=== PATIENT | male | born 1970 | race Caucasian/White ===

== ENCOUNTER 2022-11-30 06:43 | Outpatient (OUT) | payer OTHER, SELFPAY ==
[2022-11-30 07:01] LABS: Basophils Absolute Auto 0.1 10^3/uL (0.0-0.1); Basophils Percent Auto 0.7 % (0.2-2.0); Eosinophils Absolute Auto 0.1 10^3/uL (0.0-0.7); Eosinophils Percent Auto 1.1 % (0.9-7.0); Hematocrit 41.1 % (42.0-54.0); Hemoglobin 13.8 g/dL (14.0-18.0); Immature Granulocytes Abs Auto 0.03 10^3/uL (0.00-0.03); Immature Granulocytes Pct Auto 0.4 % (0.0-0.5); Lymphocytes Absolute Auto 1.8 10^3/uL (1.2-3.8); Lymphocytes Percent Auto 24.5 % (20.5-60.0); Mean Corpuscular HGB Conc 33.6 g/dL (29.9-35.2); Mean Corpuscular Hemoglobin 29.5 pg (25.9-34.0); Mean Corpuscular Volume 87.8 fL (80.0-94.0); Mean Platelet Volume 9.4 fL (9.5-13.5); Monocytes Absolute Auto 0.7 10^3/uL (0.3-0.8); Monocytes Percent Auto 8.7 % (1.7-12.0); Neutrophils Absolute Auto 4.9 10^3/uL (1.4-6.5); Neutrophils Percent Auto 64.6 % (43.0-75.0); Platelet Count 210 10^3/uL (150-450); Red Blood Count 4.68 10^6/uL (4.70-6.10); Red Cell Distribution Width 12.2 % (11.0-15.0); White Blood Count 7.5 10^3/uL (4.0-11.0)
[2022-11-30 07:44] LABS: Estimated Average Glucose 108 mg/dL; Glycohemoglobin A1C 5.4 % (4.5-6.2)
[2022-11-30 08:13] LABS: Alanine Aminotransferase 40 U/L (16-63); Albumin Globulin Ratio 1.1; Albumin Level 3.6 g/dL (3.4-5.0); Alkaline Phosphatase 78 U/L (46-116); Anion Gap 7.7; Aspartate Amino Transferase 24 U/L (15-37); BUN Creatinine Ratio 10.5; Bilirubin Direct 0.1 mg/dL (0.0-0.2); Bilirubin Total 0.5 mg/dL (0.2-1.0); Calcium 8.4 mg/dL (8.5-10.1); Carbon Dioxide 30.2 mmol/L (21.0-32.0); Chloride 106 mmol/L (98-107); Chol HDL Ratio 2.6; Cholesterol 142 mg/dL (<=200); Estimated GFR (African America >60 (>=60); Estimated GFR (Non-African Ame >60 (>=60); Globulin 3.2 g/dL; Glucose 83 mg/dL (74-106); HDL Cholesterol 55 mg/dL (40-60); Potassium 3.9 mmol/L (3.5-5.1); Sodium 140 mmol/L (136-145); Thyroid Stimulating Hormone 2.268 uIU/mL (0.358-3.740); Total Protein 6.8 g/dL (6.4-8.2); Triglycerides 70 mg/dL (<=150)
[2022-11-30 08:15] LABS: Prostate Specific Antigen Scrn 1.09 ng/mL (<=4.00)
== END 2022-11-30 06:44 | disposition home or self-care (01) ==
LOC: LAB 06:47
PROVIDERS: PCP Family Medicine; Visit Provider Family Medicine
DX: Z00.00 Encounter for general adult medical examination without abnormal findings (principal); Z12.5 Encounter for screening for malignant neoplasm of prostate
CPT/HCPCS: 36415; 80048; 80061; 80076; 83036; 84443; 85025; G0103

== ENCOUNTER 2023-02-19 08:25 | Outpatient (OUT) | payer OTHER, SELFPAY | END 2023-02-19 08:26 | disposition home or self-care (01) | LOC: PST 08:25 | PROVIDERS: PCP Family Medicine; Visit Provider Surgery | DX: Z01.818 Encounter for other preprocedural examination (principal); Z12.11 Encounter for screening for malignant neoplasm of colon ==

== ENCOUNTER 2023-04-30 11:10 | Outpatient (OUT) | payer OTHER, SELFPAY ==
--- OUTSIDE RECORDS SUMMARY | 2023-04-30 11:26 | XMS_ITS | CCD ---
Author Name Unknown Address [address] [place] [address] Organization [facility] Care Team Providers Care Front Office Secretary Name Role Phone HEATHER FERNANDEZ Primary Care Unavailable RAVI RIVERA V Consulting Unavailable NADERER, HEATHER Elizabeth Admitting Unavailable NADERER, HEATHER Elizabeth Attending Unavailable NADERER, HEATHER Elizabeth Consulting Unavailable CARLENETRACE Consulting Unavailable NADERER, HEATHER Elizabeth Admitting Unavailable NADERER, HEATHER Elizabeth Attending Unavailable NADERER, HEATHER Elizabeth Primary Care Unavailable RAVI RIVERA V Consulting Unavailable NADERER, HEATHER Elizabeth Consulting Unavailable YASHRuth Attending Unavailable YASH, LACY Garcia Admitting Unavailable NILLEloy Attending Unavailable Allergies Allergy Classification Reported Allergen(s) Allergy Type Date of Onset Reaction(s) Facility (1 source) nabumetone; Translations: [nabumetone] Drug Allergy [facility] Repository (1 source) No Known Medication Allergies; Translations: [No Known Medication Allergies] Propensity to adverse reactions (disorder) [facility] Repository Problems Active Problems Problem Classification Problem Date Documented Da te Episodic/Chronic Other lower respiratory disease (5 sources) Shortness of breath; Translations: [SHORTNESS OF BREATH] Onset: 12-03-2018 Episodic Other screening for suspected conditions (not mental disorders or infectious disease) (1 source) Other specified abnormal findings of blood chemistry; Translations: [OTH SPEC ABNORMAL FINDINGS BLD CHEM] Onset: 04-17-2019 Episodic Past or Other Problems Problem Classification Problem Date Documented Da te Episodic/Chronic Fever of unknown origin (1 source) Fever, unspecified; Translations: [FEVER UNSPECIFIED] Onset: 12-03-2018 Episodic Other liver diseases (1 source) Abnormal levels of other serum enzymes; Translations: [ABNORMAL LEVELS OTHER SERUM ENZYMES] Onset: 12-03-2018 Episodic Pneumonia (except that caused by tuberculosis or sexually transmitted disease) (4 sources) Pneumonia, unspecified organism; Translations: [PNEUMONIA UNSPECIFIED ORGANISM] Onset: 11-25-2018 Episodic Results Test Name Value Interpretation Reference Range Facil ity Ambulatory Visit Summaryon 1 Ambulatory Visit Summary YECENIA HECK :1970 Visit Date:01/01/2023 Ambulatory Visit Instructions Your Diagnosis Screening for malignant neoplasm of colon Your Care Team Attending Physician - JEANA SEBASTIAN, Elyo Kelly Primary Care Physician - REBECCA SEBASTIAN, HEATHER Procedures Performed Vasectomy. Discharge Vitals Heart Rate (Peripheral) 66 Respiratory Rate 16 Blood Pressure 123/82 Height 185.4 cm Height 73 in Weight 96 kg Weight 211.2 lb BMI 27.93 Allergies nabumetone Problems Ongoing - Any problem that you are currently receiving treatment for. BMI 27.0-27.9,adult Overweight Screening for colorectal cancer Screening for malignant neoplasm of colon [facility] Consent for Procedure/Surger yon 01-01-2023 Consent for Procedure/Surgery [id number] 6#1.00TIFF [facility] Physician Orderon 01-01-2023 Physician Order [id number] #1.00TIFF [facility] Physician Referralon 023 Physician Referral [id number] #1.00CD:127 [facility] In office Testingon 02-09-20 22 In office Testing [id number] 6#1.00CD:127 [facility] Consenton 02-05-2022 Consent [id number] 6#1.00CD:127 [facility] In office Testingon 02-06-20 22 In office Testing [id number] 5#1.00CD:127 [facility] Registrationon 02-05-2022 Registration [id number] 9#1.00CD:127 Normal [facility] CARDIAC STRESS TESTon 2019 CARDIAC STRESS TEST CARDIAC STRESS TEST Requesting Physician: Dr. Fernandez Procedure Date: 04-16-19 IGENERAL INFORMATION: A. REASON FOR STRESS TEST: To evaluate a patient with shortness of breath and elevated troponin. B. CARDIAC HISTORY AND RISK FACTORS: This is a 49 year-old patient with no personal or family history of coronary disease. In addition there are no primary risk factors stated. He is a nonsmoker. IIRESTING 12-LEAD ELECTROCARDIOGRAM: Reveals sinus rhythm with a ventricular rate of 74 beats per minute. The MO interval is 0.16, the QRS is 0.08 with a QT of 0.36. The axis is normal. There are no pathologic Q-waves, no chamber enlargement and nonspecific ST-T wave changes. III STRESS TEST: A. PROTOCOL: Emiliano protocol was followed. B.EXERCISE CAPACITY: The patient demonstrated above average exercise capacity, he exercised for 9 1/2 minutes achieving a heart rate of 174 bpm. This is equivalent to 101% maximum predicted heart rate. He exercised into stage 3 of this protocol, equivalent to 3.4 mph, 14% grade, 10.1 MET units. C.BLOOD PRESSURE RESPONSE: The patient demonstrated a normal blood pressure response to exercise, his resting was 118/80, increasing to a peak of 150/88, and gradually returning to baseline during the recovery phase. D.RHYTHM: The patient remained in sinus rhythm throughout the exercise test with ventricular couplet, a PVC, and a three-beat VT noted at peak exercise. E.ST-RESPONSE: At peak exercise there was minimal J-point depression, the ST segments were upsloping in configuration, easily returning to baseline prior to 0.08 seconds. F.PATIENT RESPONSE: The patient complained of dyspnea without chest pain. IVINTERPRETATION: This is a normal treadmill exercise test without objective evidence of myocardial ischemia. He demonstrates a normal heart rate and blood pressure response to exercise. He demonstrated above average exercise capacity. His Keating treadmill score was 9.5 placing him in a low risk category. Cardiolite was injected with images and interpretation pending. [facility] Signed and Approved by: DR ADRI PRICE 04/24/2019 08:19:00 Normal [facility] NM STRESS/REST MULTIon 04-16 NM STRESS/REST MULTI Patient: YECENIA HECK Exam Date: 04/16/2019 : 1970 Gender:M Ordering : DR HEATHER FERNANDEZ . Admission #: [id number] Family : Order #: [id number] CLICK HERE TO VIEW EXAM RADIOLOGY REPORT PROCEDURE: RADIONUCLIDE IMAGING STRESS/REST MULTI COMPARISON: None. INDICATIONS: Dyspnea on exertion R06.02, elevated troponin R79.89 TECHNIQUE: Exam Description: Stress/Rest one day protocol gated SPECT Rest Imagin.6 mCi Tc-99m Cardiolite IV on 05/17/2019 Stress Imaging 30.7 mCi Tc-99m Cardiolite IV on 05/17/2019 Exercise Protocol: Emiliano Heart Rate (bpm): Rest: 74 Max: 174 PMHR: 101 Blood Pressure: Rest: 118/80 Max: 150/88 Exercise Time: Minutes: 9 Seconds: 30 Stage Reached: Stage: 3 Mets 10.1 Symptoms: none Rest and peak stress ECG findings were normal and the exercise portion of the study was normal per attending physician Dr. Israel Price . For more details please see separate cardiac stress test report. FINDINGS: QUALITY OF STUDY: Excellent. PERFUSION DEFECT: None. LOCATION: N/A SIZE: N/A. SEVERITY: N/A. TYPE: N/A. WALL MOTION: Normal. LV SIZE: Normal. 89 mL. TID / TCD: None; 0.9 LVEF: Normal. Calculated EF 64%. SUMMARY: Myocardial perfusion imaging study is NORMAL. CONCLUSION: 1. Normal myocardial profusion scan 2. Normal exercise test Dictated by: Ravi Rivera M.D. on 04/16/2019 at 14:48 Approved by: Ravi Rivera M.D. on 04/16/2019 at 14:49 Normal [facility] CBC W MANUAL DIFFon 11-27-19 19 ATYPICAL LYMPH # Normal [facility] Comment on above: Performed By: #### C JAS #### [facility] [address] [place] [address] Adina Rutherford ATYPICAL LYMPH % Normal [facility] Comment on above: Performed By: #### C JAS #### [facility] [address], [place] [address] Adina Rutherford BAND # 0.3 103/ul Normal 0.0-0.3 [facility] Comment on above: Performed By: #### Holland MARK #### [facility] [address] [place], [place] [address] Adina Sangeeta BAND % 3 % Normal 0-5 [facility] Comment on above: Performed By: #### C JAS #### [facility] [address] [place] [address] Adina Sangeeta BASOM # 0.00 103/ul Normal 0.00-0.10 [facility] Comment on above: Performed By: #### C JAS #### [facility] [address] [place] [address] Adina Sangeeta BASOM % 0.0 % Critically low 0.2-2.0 [facility] Comment on above: Performed By: #### Holland MARK #### [facility] [address] [place] [address] Adina Sangeeta BLAST # Normal [facility] Comment on above: Performed By: #### Holland MARK #### [facility] [address] [place] [address] Adina Sangeeta BLAST % Normal [facility] Comment on above: Performed By: #### Holland MARK #### [facility] [address] [place] [address] Adina Sangeeta CORRECTED WBC Normal 4.0-11.0 [facility] Comment on above: Performed By: #### Holland MARK #### [facility] [address] [place] [address] Adina Sangeeta Eosinophils (Bld) [#/Vol] 0.00 103/ul Normal 0.00-0.70 [facility] Comment on above: Performed By: #### Holland MARK #### [facility] [address] [place] [address] Adina Sangeeta Eosinophils/100 WBC (Bld) 0.0 % Critically low 0.9-7.0 [facility] Comment on above: Performed By: #### Holland MARK #### [facility] [address] [place] [address] Adina Sangeeta Erythrocyte distribution width (RBC) [Ratio] 11.9 % Normal 11.0-15.0 [facility] Comment on above: Performed By: #### C JAS #### [facility] [address] [place] [address] Adina Rutherford Hematocrit (Bld) [Volume fraction] 39.3 % Critically low 42.0-54.0 [facility] Comment on above: Performed By: #### C JAS #### [facility] [address] [place] [address] Adina Rutherford Hemoglobin (Bld) [Mass/Vol] 13.0 g/dl Critically low 14.0-18.0 [facility] Comment on above: Performed By: #### C JAS #### [facility] [address] [place] [address] Adina Rutherford LYMPHM # 0.32 103/ul Critically low 1.20-3.80 [facility] Comment on above: Performed By: #### C JAS #### [facility] [address] [place] [address] Adina Rutherford LYMPHM% 3.0 % Critically low 20.5-60.0 [facility] Comment on above: Performed By: #### C JAS #### [facility] [address] [place], [place] [address] Adina Rutherford MCH (RBC) [Entitic mass] 29.1 pg Normal 25.9-34.0 [facility] Comment on above: Performed By: #### C JAS #### [facility] [address] [place] [address] Adina Rutherford MCHC (RBC) [Mass/Vol] 33.1 g/dl Normal 29.9-35.2 [facility] Comment on above: Performed By: #### C JAS #### [facility] [address] [place], [place] [address] Adina Rutherford MCV (RBC) [Entitic vol] 87.9 fL Normal 80.0-94.0 [facility] Comment on above: Performed By: #### C JAS #### [facility] [address] [address] Adina Sangeeta METAMYELOCYTE # Normal [facility] Comment on above: Performed By: #### C JAS #### [facility] [address] [place], [place] [address] Adina Sangeeta METAMYELOCYTE % Normal [facility] Comment on above: Performed By: #### C JAS #### [facility] [address] [place] [address] Adina Sangeeta MONOM# 0.10 103/ul Critically low 0.30-0.80 [facility] Comment on above: Performed By: #### C JAS #### [facility] [address] [place] [address] Adina Sangeeta MONOM% 1.0 % Critically low 1.7-12.0 [facility] Comment on above: Performed By: #### C JAS #### [facility] [address] [place] [address] Adina Sangeeta MYELOCYTE # Normal [facility] Comment on above: Performed By: #### Holladn MARK #### [facility] [address] [place] [address] Adina Sangeeta MYELOCYTE % Normal [facility] Comment on above: Performed By: #### C JAS #### [facility] [address] [place] [address] Adina Sangeeta NRBC Normal [facility] Comment on above: Performed By: #### Holland MARK #### [facility] [address] [place] [address] Adina Sangeeta Platelet mean volume (Bld) [Entitic vol] 10.7 fL Normal 9.5-13.5 [facility] Comment on above: Performed By: #### C JAS #### [facility] [address] [place] [address] Adina Sangeeta Platelets (Bld) [#/Vol] 230 103/ul Normal 150-450 [facility] Comment on above: Performed By: #### Holland MARK #### [facility] [address] [place] [address] Adina Sangeeta RBC (Bld) [#/Vol] 4.47 106/ul Critically low 4.70-6.10 Th [facility] Comment on above: Performed By: #### C JAS #### [facility] [address] [place], [place] [address] Adina Sangeeta SEG # 9.77 103/ul Critically high 1.40-6.50 [facility] Comment on above: Performed By: #### C JAS #### [facility] [address] [place], [place] [address] Adina Sangeeta Segmented neutrophils/100 WBC (Bld) 93.0 % Critically high 43.0-75.0 [facility] Comment on above: Performed By: #### C JAS #### [facility] [address] [place] [address] Adina Sangeeta WBC (Bld) [#/Vol] 10.5 103/ul Normal 4.0-11.0 [facility] Comment on above: Performed By: #### C JAS #### [facility] [address] [place], [place] [address] Adina Sangeeta PROF CHEM 8 (BAS METB)on Anion gap [Moles/Vol] 15.2 mmol/L Normal [facility] Comment on above: Performed By: #### B MP #### [facility] [address] [place], [place] [address] Adina Sangeeta Calcium [Mass/Vol] 8.6 mg/dL Normal 8.4-10.2 [facility] Comment on above: Performed By: #### B MP #### [facility] [address] [place], [place] [address] Adina Sangeeta Chloride [Moles/Vol] 105 mmol/L Normal 98-107 [facility] Comment on above: Performed By: #### B MP #### [facility] [address] [place], [place] [address] Adina Sangeeta CO2 [Moles/Vol] 26.0 mmol/L Normal 22.0-30.0 [facility] Comment on above: Performed By: #### B MP #### [facility] [address] [address] Adina Sangeeta Creatinine [Mass/Vol] 0.77 mg/dL Normal 0.66-1.25 [facility] Comment on above: Performed By: #### B MP #### [facility] [address] [address] Adina Sangeeta EGFR-AF CHINESE >60 Normal >=60 [facility] Comment on above: Performed By: #### B MP #### [facility] [address] [address] Adina Sangeeta EGFR-NON AF CHINESE >60 Normal >=60 [facility] Comment on above: Performed By: #### B MP #### [facility] [address] [place] [address] Adina Sangeeta Glucose [Mass/Vol] 141 mg/dL Critically high 74-106 [facility] Comment on above: Performed By: #### B MP #### [facility] [address] [place] [address] Adina Sangeeta Potassium [Moles/Vol] 4.2 mmol/L Normal 3.4-5.0 [facility] Comment on above: Performed By: #### B MP #### [facility] [address] [place] [address] Adina Sangeeta Sodium [Moles/Vol] 142 mmol/L Normal 137-145 [facility] Comment on above: Performed By: #### B MP #### [facility] [address] [place], [place] [address] Adina Sangeeta Urea nitrogen [Mass/Vol] 12.0 mg/dL Normal 9.0-20.0 [facility] Comment on above: Performed By: #### B MP #### [facility] [address] [place], [place] [address] Adina Sangeeta Urea nitrogen/Creatinine [Mass ratio] 15.6 mg/mg Normal [facility] Comment on above: Performed By: #### B MP #### [facility] [address] [address] Adina Sangeeta CARDIAC SRIDHAR 3-6on 9 CK [Catalytic activity/Vol] 232 U/L Critically high 55-170 [facility] Comment on above: Performed By: #### C MREP #### [facility] [address] [place], [place] [address] Adina Sangeeta CK.MB [Mass/Vol] 0.59 ng/mL Normal <=2.37 [facility] Comment on above: Performed By: #### C MREP #### [facility] [address] [place], [place] [address] Adina Sangeeta INR Coag (Bld) [Relative time] SEE BELOW Normal [facility] Comment on above: Result Comment: <0.0 34 ng/ml NEGATIVE 0.034-0.119 INDETERMINATE 0.120 AMI CUT OFF Performed By: #### C MREP #### [facility] [address] [place] [address] Adina Sangeeta TROP 0.063 ng/mL Critically high <=0.034 [facility] Comment on above: Performed By: #### C MREP #### [facility] [address] [place] [address] Adina Sangeeta CK [Catalytic activity/Vol] 238 U/L Critically high 55-170 [facility] Comment on above: Performed By: #### C MREP #### [facility] [address] [place] [address] Adina Sangeeta CK.MB [Mass/Vol] 0.57 ng/mL Normal <=2.37 [facility] Comment on above: Performed By: #### C MREP #### [facility] [address] [place] [address] Adina Sangeeta INR Coag (Bld) [Relative time] SEE BELOW Normal [facility] Comment on above: Result Comment: <0.0 34 ng/ml NEGATIVE 0.034-0.119 INDETERMINATE 0.120 AMI CUT OFF Performed By: #### C MREP #### [facility] [address] [place], [place] [address] Adina Sangeeta TROP 0.083 ng/mL Critically high <=0.034 [facility] Comment on above: Performed By: #### C MREP #### [facility] [address] [place], [place] [address] Adina Sangeeta CBC AUTO DIFFon 11-25-2018 Basophils (Bld) [#/Vol] 0.0 103/ul Normal 0.0-0.1 [facility] Comment on above: Performed By: #### C BC #### [facility] [address] [place], [place] [address] Adina Sangeeta Basophils/100 WBC (Bld) 0.2 % Normal 0.2-2.0 [facility] Comment on above: Performed By: #### C BC #### [facility] [address] [place], [place] [address] Adina Sangeeta Eosinophils (Bld) [#/Vol] 0.1 103/ul Normal 0.0-0.7 [facility] Comment on above: Performed By: #### C BC #### [facility] [address] [place], [place] [address] Adina Sangeeta Eosinophils/100 WBC (Bld) 0.7 % Critically low 0.9-7.0 [facility] Comment on above: Performed By: #### C BC #### [facility] [address] [place], [place] [address] Adina Sangeeta Erythrocyte distribution width (RBC) [Ratio] 11.9 % Normal 11.0-15.0 [facility] Comment on above: Performed By: #### C BC #### [facility] [address] [place], [place] [address] Adina Sangeeta Hematocrit (Bld) [Volume fraction] 35.9 % Critically low 42.0-54.0 [facility] Comment on above: Performed By: #### C BC #### [facility] [address] [place], [place] [address] Adina Sangeeta Hemoglobin (Bld) [Mass/Vol] 12.0 g/dL Critically low 14.0-18.0 [facility] Comment on above: Performed By: #### C BC #### [facility] [address] [place], [place] [address] Adina Sangeeta IG # 0.05 10e3/ul Critically high 0.00-0.03 [facility] Comment on above: Performed By: #### C BC #### [facility] [address], [place] [address] Adina Sangeeta IG % 0.6 % Critically high 0.0-0.5 [facility] Comment on above: Performed By: #### C BC #### [facility] [address], [place] [address] Adina Sangeeta Lymphocytes (Bld) [#/Vol] 0.8 103/ul Critically low 1.2-3.8 [facility] Comment on above: Performed By: #### C BC #### [facility] [address], [place] [address] Adina Sangeeta Lymphocytes/100 WBC (Bld) 9.9 % Critically low 20.5-60.0 [facility] Comment on above: Performed By: #### C BC #### [facility] [address] [place], [place] [address] Adina Sangeeta MANUAL DIFF REQ NO Normal [facility] Comment on above: Performed By: #### C BC #### [facility] [address] [place] [address] Adina Sangeeta MCH (RBC) [Entitic mass] 29.3 pg Normal 25.9-34.0 [facility] Comment on above: Performed By: #### C BC #### [facility] [address] [place] [address] Adina Sangeeta MCHC (RBC) [Mass/Vol] 33.4 g/dL Normal 29.9-35.2 [facility] Comment on above: Performed By: #### C BC #### [facility] [address], [place] [address] Adina Sangeeta MCV (RBC) [Entitic vol] 87.8 fL Normal 80.0-94.0 [facility] Comment on above: Performed By: #### C BC #### [facility] [address], [place] [address] Adina Sangeeta Monocytes (Bld) [#/Vol] 0.7 103/ul Normal 0.3-0.8 [facility] Comment on above: Performed By: #### C BC #### [facility] [address], [place] [address] Adina Sangeeta Monocytes/100 WBC (Bld) 9.1 % Normal 1.7-12.0 [facility] Comment on above: Performed By: #### C BC #### [facility] [address], [place] [address] Adina Sangeeta Neutrophils (Bld) [#/Vol] 6.5 103/ul Normal 1.4-6.5 [facility] Comment on above: Performed By: #### C BC #### [facility] [address], [place] [address] Adian Sangeeta Neutrophils/100 WBC (Bld) 79.5 % Critically high 43.0-75.0 [facility] Comment on above: Performed By: #### C BC #### [facility] [address], [place] [address] Adina Sangeeta Platelet mean volume (Bld) [Entitic vol] 9.7 fL Normal 9.5-13.5 [facility] Comment on above: Performed By: #### C BC #### [facility] [address], [place] [address] Adina Sangeeta Platelets (Bld) [#/Vol] 198 103/ul Normal 150-450 [facility] Comment on above: Performed By: #### C BC #### [facility] [address], [place] [address] Adina Sangeeta RBC (Bld) [#/Vol] 4.09 106/ul Critically low 4.70-6.10 Th [facility] Comment on above: Performed By: #### C BC #### [facility] [address], [place] [address] Adina Sangeeta WBC (Bld) [#/Vol] 8.2 103/ul Normal 4.0-11.0 [facility] Comment on above: Performed By: #### C BC #### [facility] [address], [place] [address] Adina Sangeeta LACTATE/LACTIC ACIDon 2018 Lactate [Moles/Vol] 1.1 mmol/L Normal 0.7-2.1 [facility] Comment on above: Performed By: #### L ACT #### [facility] [address] [place], [place] [id number] Adina Rutherford LIPASEon 11-25-2018 Lipase [Catalytic activity/Vol] 108.0 U/L Normal 23.0-300.0 [facility] Comment on above: Performed By: #### C MP, LIPA, TROP #### [facility] [address] [place] [address] Adina Rutherford PROF 14(COMP METB)on 019 Albumin [Mass/Vol] 2.7 g/dL Critically low 3.5-5.0 [facility] Comment on above: Performed By: #### C MP, LIPA, TROP #### [facility] [address] [place] [address] Adinatianna Rutherford Albumin/Globulin [Mass ratio] 0.8 {ratio} Normal [facility] Comment on above: Performed By: #### C MP, LIPA, TROP #### [facility] [address] [place] [address] Adina Sangeeta ALP [Catalytic activity/Vol] 51 U/L Normal 38-126 [facility] Comment on above: Performed By: #### C MP, LIPA, TROP #### [facility] [address] [place] [address] Adina Sangeeta ALT [Catalytic activity/Vol] 25 U/L Normal 21-72 [facility] Comment on above: Performed By: #### C MP, LIPA, TROP #### [facility] [address] [place] [address] Adina Sangeeta Anion gap [Moles/Vol] 13.2 mmol/L Normal [facility] Comment on above: Performed By: #### C MP, LIPA, TROP #### [facility] [address] [place], [place] [id number] Adina Sangeeta AST [Catalytic activity/Vol] 21 U/L Normal 17-59 [facility] Comment on above: Performed By: #### C MP, LIPA, TROP #### [facility] [address] [address] Adina Sangeeta Bilirubin Ql (U) 0.3 mg/dL Normal 0.2-1.3 [facility] Comment on above: Performed By: #### C MP, LIPA, TROP #### [facility] [address] [address] Adina Sangeeta Calcium [Mass/Vol] 8.1 mg/dL Critically low 8.4-10.2 [facility] Comment on above: Performed By: #### C MP, LIPA, TROP #### [facility] [address] [place] [address] Adina Sangeeta Chloride [Moles/Vol] 104 mmol/L Normal 98-107 [facility] Comment on above: Performed By: #### C MP, LIPA, TROP #### [facility] [address] [place] [address] Adina Sangeeta CO2 [Moles/Vol] 28.3 mmol/L Normal 22.0-30.0 [facility] Comment on above: Performed By: #### C MP, LIPA, TROP #### [facility] [address] [place] [address] Adina Sangeeta Creatinine [Mass/Vol] 0.95 mg/dL Normal 0.66-1.25 [facility] Comment on above: Performed By: #### C MP, LIPA, TROP #### [facility] [address] [place] [address] Adina Sangeeta EGFR-AF CHINESE >60 Normal >=60 [facility] Comment on above: Performed By: #### C MP, LIPA, TROP #### [facility] [address] [place] [address] Adina Sangeeta EGFR-NON AF CHINESE >60 Normal >=60 [facility] Comment on above: Performed By: #### C MP, LIPA, TROP #### [facility] [address] [place] [address] Adina Sangeeta Globulin (S) [Mass/Vol] 3.5 g/dL Normal [facility] Comment on above: Performed By: #### C MP, LIPA, TROP #### [facility] [address] [place] [address] Adina Sangeeta Glucose [Mass/Vol] 101 mg/dL Normal 74-106 [facility] Comment on above: Performed By: #### C MP, LIPA, TROP #### [facility] [address] [place] [address] Adina Sangeeta Potassium [Moles/Vol] 3.5 mmol/L Normal 3.4-5.0 [facility] Comment on above: Performed By: #### C MP, LIPA, TROP #### [facility] [address] [place] [address] Adina Sangeeta Protein [Mass/Vol] 6.2 g/dL Normal 6.1-8.2 [facility] Comment on above: Performed By: #### C MP, LIPA, TROP #### [facility] [address] [place] [address] Adina Sangeeta Sodium [Moles/Vol] 142 mmol/L Normal 137-145 [facility] Comment on above: Performed By: #### C MP, LIPA, TROP #### [facility] [address] [place] [address] Adina Sangeeta Urea nitrogen [Mass/Vol] 11.0 mg/dL Normal 9.0-20.0 [facility] Comment on above: Performed By: #### C MP, LIPA, TROP #### [facility] [address] [place] [address] Adina Sangeeta Urea nitrogen/Creatinine [Mass ratio] 11.6 mg/mg Normal [facility] Comment on above: Performed By: #### C MP, LIPA, TROP #### [facility] [address] [place] [address] Adina Sangeeta TROPONIN - Ion 11-25-2018 Troponin I.cardiac [Mass/Vol] 0.075 ng/mL Critically high <=0.034 [facility] Comment on above: Result Comment: TEST REPEATED CRITICAL VALUE VERIFIED Performed By: #### C MP, LIPA, TROP #### [facility] [address] [address] Adina Rutherford Troponin I.cardiac [Mass/Vol] SEE BELOW Normal [facility] Comment on above: Result Comment: <0.0 34 ng/ml NEGATIVE 0.034-0.119 INDETERMINATE 0.120 AMI CUT OFF Performed By: #### C MP, LIPA, TROP #### [facility] [address] [id number] Adina Rutherford XR CHEST 2 Von 11-25-2018 XR CHEST 2 V Patient: YECENIA HECK Exam Date: 11/25/2018 : 1970 Gender:M Ordering : DR TRACE CONCEPCION Admission #: [id number] Family : DR HEATHER FERNANDEZ . Order #: [id number] CLICK HERE TO VIEW EXAM RADIOLOGY REPORT PROCEDURE: RADIOGRAPH CHEST 2 VIEWS COMPARISON: None. INDICATIONS: Acute cough with fever FINDINGS: LUNGS: Moderate left lower lobe infiltrate obscuring the hemidiaphragm. The right lung is clear VASCULATURE: No increased pulmonary vasculature. PLEURA: No pneumothorax, effusion, or pleural thickening. CARDIAC: No cardiomegaly or cardiac silhouette abnormality. MEDIASTINUM: No visible mass or adenopathy. BONES: No fracture or visible bone lesion. OTHER: Negative. CONCLUSION: 1. Left lower lobe pneumonia Dictated by: Ravi Rivera M.D. on 11/25/2018 at 10:17 Approved by: Ravi Rivera M.D. on 11/25/2018 at 10:18 Normal [facility] Encounters Encounter Date Encounter Type Care Provider Facility Start: 01-01-2023 End: 01-02-2023 ambulatory Eloy HILLS Facility:[facility] Start: 12-20-2022 ambulatory Ruth BERRIOS Facility:[facility] Start: 12-20-2022 ambulatory Ruth YASH Facility:[facility] Start: 02-05-2022 End: 02-06-2022 ambulatory Ruth Radha YASH Facility:[facility] Start: 04-16-2019 End: 04-17-2019 Patient encounter procedure HEATHER FERNANDEZ Facility:[facility] Start: 11-25-2018 End: 11-26-2018 Patient encounter procedure HEATHER FERNANDEZ Facility:[facility] Procedures Date Procedure Procedure Detail Performing Clinician Start: 11-25-2018 Microscopic examinat ion of blood, culture HEATHER FERNANDEZ Comment on above: Performed By: #### L ACT #### [facility] [address] [place], [place] [address] Adina Rutherford Payers Date Payer Category Payer Private Health Insurance [facility] [id number] 1970 Unknown [id number] 1970 Unknown [id number] [id number] [id number] 1970 Unknown [id number] [id number] 1970 Unknown [id number] [id number] [id number] 1970 Unknown [id number] [id number] 1957 Private Health Insurance [facility] [id number] Clinical Note 01-01-2023 Note Date & Type Note Facility 01-01-2023 Note Chief Complaint consultation for screening colonoscopy HPI Staff 52 year old male presents on consultation from Dr. Fernandez for screening colonoscopy. Denies abdominal or rectal pain. No rectal bleeding or change in bowel habits. Denies nausea or vomiting. No unexplained weight loss. Never had colonoscopy in the past. Mother with history of colon polyps. No known family history of colon cancer. History of Present Illness 52 yo male referred for colorectal screening; denies change in bms or blood in stools; no abdominal complaints; denies asa or NSAID use, no SBE prophylaxis; no abdominal operations or previous colonoscopy; no fmhx of GI malignancy or IBD; no tobacco use. Review of Systems PHQ Score Initial Depression Screen Score: 0 ROS - Provider Constitutional: no fever, no sweats, no weight loss. Eyes: no glasses, no blurred vision, no visual loss. ENMT: no dentures, no hoarseness, no swallowing difficulties, no hearing loss, no ear infection(s), no nose bleeds. Cardiovascular: normal blood pressure, no chest pain, regular heartbeat, no heart murmur. Respiratory: no shortness of breath, no cough, no asthma, no wheezing. Gastrointestinal: no nausea, no vomiting, no diarrhea, no constipation, no blood in stool, no change in bowel habits, no abdominal pain, no hepatitis. Genitourinary: no kidney stones, no urine infection, no dysuria. Musculoskeletal: no pain, no weakness. Skin: no changing moles, no rash, no skin lumps. Neurologic: no seizures, no epilepsy, no headache. Psychiatric: no emotional or psychiatric problem. Heme/Lymph: no bleeding problems, no anemia, no blood clots, no transfusions. Allergy/Immunologic: no swollen lymph nodes/glands, no IV drug abuse. Other: Additional ROS info: Except as noted in the above Review of Systems and in the History of Present Illness, all other systems have been reviewed and are negative or noncontributory. Physical Exam Vitals & Measurements HR: 66(Peripheral) RR: 16 BP: 123/82 HT: 73 in HT: 185.4 cm WT: 96 kg WT: 211.2 lb BMI: 27.93 HEENT: normal conjunctiva, sclera clear, no scleral icterus, EOM intact, PERRLA, oral mucosa moist without lesions. Neck: trachea midline, no mass, symmetric, no thyromegaly or nodules, no adenopathy Respiratory: lungs CTA, respirations non labored. Cardiovascular: regular rate and rhythm, no murmur, no pedal edema or varicosities. Gastrointestinal: soft, non distended, no tenderness, no masses, no palpable hernias, diastasis recti no, no hepatosplenomegaly; normal bs Lymphatic: no cervical adenopathy, no supraclavicular adenopathy. Musculoskeletal: normal gait, digits and nails without infection, nodes, cyanosis, clubbing. Skin: no rashes, no lesions, no ulcers, no subcutaneous nodules, induration. Psychiatric/Neuro: oriented to time, place, person, judgement normal, affect appropriate for age, insight intact, no focal deficits. Tests review of old records completed , Discussed surgical options, risks, and possible complications with patient. Assessment/Plan 1. Screening for malignant neoplasm of colon (Z12.11: Encounter for screening for malignant neoplasm of colon) plan colonoscopy under anesthesia, informed consent obtained. Follow-up No qualifying data available Problem List/Past Medical History Ongoing BMI 27.0-27.9,adult Overweight Screening for colorectal cancer Screening for malignant neoplasm of colon Historical No qualifying data Procedure/Surgical History Vasectomy. Medications No active medications Allergies nabumetone Social History Alcohol - Denies Alcohol Use, 01/01/2023 Substance Abuse - Denies Substance Abuse, 01/01/2023 Tobacco Never (less than 100 in lifetime) Tobacco Use:. Never Smokeless Tobacco Use:., 01/01/2023 Family History Family history is negative Immunizations Vaccine Date Status Comments SARS-CoV-2 (COVID-19) [id number] 02/23/2022 Recorded SARS-CoV-2 (COVID-19) mRNA BNT-162b2 vax 02/18/2021 Recorded SARS-CoV-2 (COVID-19) mRNA BNT-162b2 vax 07/08/2020 Given Prophylaxis SARS-CoV-2 (COVID-19) mRNA BNT-162b2 vax 06/10/2020 Given Prophylaxis [facility] Comment on above: Result Comment: Elec tronically Signed By: JEANA SEBASTIAN, Eloy Cevallosbr\Date and Time Signed: 01/01/23 11:17 EDT Summary Purpose Family History No Family History Records FoundNo Family History Records Found Advance Directives No Advanced Directives Records FoundNo Advanced Directives Records Found Additional Source Comments (unrecognized sect ion and content) No Status Records FoundNo Status Records Found INFORMATION SOURCE (unrecogn ized section and content) DATE CREATED AUTHOR 05/14/2019 [facility] DATE CREATED AUTHOR AUTHOR'S ORGANIZ ATION 01/02/2023 [facility] FOR RECORDS PERTAINING TO PATIENTS WHO ARE OR HAVE BEEN ENROLLED IN A CHEMICAL DEPENDENCY/SUBSTANCEABUSE PROGRAM, SOME INFORMATION MAY BE OMITTED. This clinical summary was aggregated from multiple sources. Caution should be exercised in using it in the provision of clinical care. This summary normalizes information from multiple sources, and as a consequence, information in this document may materially change the coding, format and clinical context of patient data. In addition, data may be omitted in some cases. CLINICAL DECISIONS SHOULD BE BASED ON THE PRIMARY CLINICAL RECORDS. [facility] [employer] [facility] provides no warranty or guarantee of the accuracy or completeness of information in this document.
== END 2023-04-30 11:11 | disposition home or self-care (01) ==
LOC: PST 11:10
PROVIDERS: PCP Family Medicine; Visit Provider Surgery
DX: Z12.11 Encounter for screening for malignant neoplasm of colon (principal)

== ENCOUNTER 2023-05-08 06:31 | Day surgery (SDC) | payer OTHER, SELFPAY ==
--- NOTE | 2023-05-08 | OP_ITS ---
OPERATION DATE: 05/08/2023 PREOPERATIVE DIAGNOSIS: Colorectal screening. POSTOPERATIVE DIAGNOSIS: Normal colonoscopy to cecum. PROCEDURE: Colonoscopy to cecum. SURGEON: Eloy Bell M.D. ANESTHESIA: Monitored anesthesia care. ESTIMATED BLOOD LOSS: Zero. INDICATIONS AND CONSENT: Patient is a 53-year-old male presents for colorectal screening. Indications, risks, benefits, alternatives of proceeding were explained extensively to the patient, including the risks of bleeding, colon perforation or anesthetic complications. All of his questions were answered. Informed consent was obtained. PROCEDURE: Patient brought to the operating room, placed in the left lateral decubitus position. Monitored anesthesia care was provided. Rectal exam was performed which showed no masses or blood. The scope was inserted into the anal canal. Under direct visualization was advanced. It was advanced to the cecum where cecal markings were clearly identified. Upon withdrawal of the scope, mucosal surfaces were carefully examined. There was noted to be a good prep. There were no mass lesions or polyps. No inflammatory changes or ulcerations. No significant diverticulosis. The scope was retroflexed in the anal canal. There was no significant hemorrhoidal disease. Scope was then withdrawn. Patient tolerated procedure well, was sent to recovery room in good condition. Follow up screening colonoscopy should be in 10 years. CC: John Colon M.D. [facility]
--- OUTSIDE RECORDS SUMMARY | 2023-05-08 06:34 | XMS_ITS | CCD ---
Author Name Unknown Address [address] [place] [address] Organization [facility] Care Team Providers Care Permit Coordinator Name Role Phone HEATHER FERNANDEZ Primary Care Unavailable RAVI RIVERA V Consulting Unavailable NADERER, HEATHER Elizabeth Admitting Unavailable NADERERobin, HEATHER Elizabeth Attending Unavailable ELYERERobin, HEATHER Elizabeth Consulting Unavailable TRACE CONCEPCION Consulting Unavailable NADERER, HEATHER Elizabeth Admitting Unavailable NADERER, HEATHER Elizabeth Attending Unavailable REBECCA, HEATHER Elizabeth Primary Care Unavailable RAVI RIVERA V Consulting Unavailable REBECCA, HEATHER Elizabeth Consulting Unavailable Ruth BERRIOS Attending Unavailable YASH, LACY Garcia Admitting Unavailable Eloy HILLS Attending Unavailable Azeb Gates Unavailable Allergies Allergy Classification Reported Allergen(s) Allergy Type Date of Onset Reaction(s) Facility (1 source) nabumetone; Translations: [nabumetone] Drug Allergy [facility] Repository (1 source) No Known Medication Allergies; Translations: [No Known Medication Allergies] Propensity to adverse reactions (disorder) [facility] Repository Medications Current Medications Medication Drug Class(es) Dates Sig (Normalized) Sig (Original) azithromycin 250 mg oral tablet (1 source) Macrolide Antimicrobial Start: 05-02-2023 Azithromycin 250 MG 2 tablet on the first day, then 1 tablet daily for 4 days Orally Once a day for 5 day(s) Apr, Active predniSONE 20 mg oral tablet (1 source) Start: 05-02-2023 take 1 tablet by mouth every twelve hours prednisone 20 MG 1 tablet Orally BID for 5 Apr, Active Completed/Discontinued Medications Medication Drug Class(es) Dates Sig (Normalized) Sig (Original) amoxicillin 875 mg oral tablet (1 source) Penicillin-class Antibacterial Start: 11-17-2018 take 1 tablet by mouth every twelve hours Amoxicillin 875 MG 1 tablet Orally every 12 hrs for 7 days Oct, Not-Taking/PRN dextromethorphan hydrobromide 15 mg / guaiFENesin 400 mg / pseudoephedrine hydrochloride 60 mg oral tablet (1 source) alpha-Adrenergic Agonist, Uncompetitive C-ctlkqp-N-aspartat e Receptor Antagonist, Sigma-1 Agonist Start: 11-17-2018 take 1 tablet by mouth every six hours Capmist DM 60-15-400 MG 1 tablet as needed Orally every 6 hours Oct, Not-Taking/PRN fluticasone propionate 0.05 mg/actuat metered dose nasal spray (1 source) Corticosteroid Start: 11-17-2018 take 1 spray(s) nasal route once daily as needed Fluticasone Propionate 50 MCG/ACT 1 spray in each nostril Nasally Once a day for 21 days Oct, Not-Taking/PRN methylPREDNISolone (1 source) Corticosteroid Start: 07-14-2015 Depo-Medrol 80 mg Jun, 80 mg Problems Active Problems Problem Classification Problem Date Documented Da te Episodic/Chronic Chronic obstructive pulmonary disease and bronchiectasis (1 source) Bronchitis, not specified as acute or chronic Episodic Other lower respiratory disease (5 sources) Shortness [...] Care Team Attending Physician - JEANA SEBASTIAN, Eloy Kelly Primary Care Physician - REBECCA SEBASTIAN, [...] cancer Screening for malignant neoplasm of colon [facility] Consent for Procedure/Surger yon 01-01-2023 Consent for Procedure/Surgery [id number] 6#1.00TIFF [facility] Physician Orderon 01-01-2023 Physician Order [id number] #1.00TIFF [facility] Physician Referralon 023 Physician Referral [id number] #1.00CD:127 [facility] In office Testingon 02-09-20 22 In office Testing [id number] 6#1.00CD:127 [facility] Consenton 02-05-2022 Consent [id number] 6#1.00CD:127 [facility] In office Testingon 02-06-20 22 In office Testing [id number] 5#1.00CD:127 [facility] Registrationon 02-05-2022 Registration [id number] 9#1.00CD:127 [facility] CARDIAC STRESS TESTon 2019 CARDIAC STRESS TEST [...] rate of 74 beats per minute. The IN interval is 0.16, the QRS is 0.08 [...] was injected with images and interpretation pending. [facility] Signed and Approved by: DR ADRI PRICE 04/24/2019 08:19:00 Normal [facility] NM STRESS/REST MULTIon 04-16 NM STRESS/REST MULTI Patient: YECENIA HECK. Exam Date: 04/16/2019 : 1970 Gender:M Ordering : DR HEATHER FERNANDEZ . Admission #: [id number] Family : Order #: [id number] CLICK HERE TO VIEW EXAM RADIOLOGY REPORT [...] M.D. on 04/16/2019 at 14:49 Normal The [facility] [place] CBC W MANUAL DIFFon 11-27-19 19 ATYPICAL LYMPH # Normal [facility] Comment on above: Performed By: #### Holland MARK #### [facility] [place] [facility] [address] [place], [place] [address] Adina Sangeeta ATYPICAL LYMPH % Normal [facility] Comment on above: Performed By: #### Holland MARK #### [facility] [place] [facility] [address] [place], [place] [address] Adina Sangeeta BAND # 0.3 103/ul Normal 0.0-0.3 [facility] Comment on above: Performed By: #### Holland MARK #### [facility] [place] [facility] [address] [place] [address] Adina Sangeeta BAND % 3 % Normal 0-5 [facility] Comment on above: Performed By: #### Holland MARK #### [facility] [place] [facility] [address] [place], [place] [address] Adina Sangeeta BASOM # 0.00 103/ul Normal 0.00-0.10 [facility] Comment on above: Performed By: #### C JAS #### [facility] [place] [facility] [address] [id number] Adina Sangeeta BASOM % 0.0 % Critically low 0.2-2.0 The [facility] Comment on above: Performed By: #### C JAS #### [facility] [address] [place] [address] Adina Sangeeta BLAST # Normal [facility] Comment on above: Performed By: #### C JAS #### [facility] [place] [facility] [address] [place] [address] Adina Sangeeta BLAST % Normal [facility] Comment on above: Performed By: #### C JAS #### [facility] [address] [place] [address] Adina Sangeeta CORRECTED WBC Normal 4.0-11.0 [facility] Comment on above: Performed By: #### C JAS #### [facility] [place] [facility] [address] [place] [address] Adina Sangeeta Eosinophils (Bld) [#/Vol] 0.00 103/ul Normal 0.00-0.70 [facility] Comment on above: Performed By: #### C JAS #### [facility] [place] [facility] [address] [place] [address] Adina Sangeeta Eosinophils/100 WBC (Bld) 0.0 % Critically low 0.9-7.0 [facility] [place] Comment on above: Performed By: #### C JAS #### [facility] [place] [facility] [address] [place] [address] Aidna Sangeeta Erythrocyte distribution width (RBC) [Ratio] 11.9 % Normal 11.0-15.0 [facility] Comment on above: Performed By: #### C JAS #### [facility] [place] [facility] [address] [place] [address] Adina Sangeeta Hematocrit (Bld) [Volume fraction] 39.3 % Critically low 42.0-54.0 [facility] [place] Comment on above: Performed By: #### C JAS #### [facility] [place] [facility] [address], [place] [address] Adina Sangeeta Hemoglobin (Bld) [Mass/Vol] 13.0 g/dl Critically low 14.0-18.0 [facility] Comment on above: Performed By: #### C JAS #### [facility] [place] [facility] [address] [address] Adina Sangeeta LYMPHM # 0.32 103/ul Critically low 1.20-3.80 The [facility] Comment on above: Performed By: #### C JAS #### [facility] [place] [facility] [address] [address] Adina Sangeeta LYMPHM% 3.0 % Critically low 20.5-60.0 [facility] Comment on above: Performed By: #### Holland MARK #### [facility] [place] [facility] [address] [id number] Adina Sangeeta MCH (RBC) [Entitic mass] 29.1 pg Normal 25.9-34.0 [facility] Comment on above: Performed By: #### Holland MARK #### [facility] [place] [facility] [address] [address] Adina Sangeeta MCHC (RBC) [Mass/Vol] 33.1 g/dl Normal 29.9-35.2 [facility] Comment on above: Performed By: #### Holland MARK #### [facility] [place] [facility] [address] [address] Adinatianna Alarconen MCV (RBC) [Entitic vol] 87.9 fL Normal 80.0-94.0 [facility] Comment on above: Performed By: #### Holland MARK #### [facility] [place] [facility] [address] [id number] Adina Sangeeta METAMYELOCYTE # Normal [facility] Comment on above: Performed By: #### Holland MARK #### [facility] [place] [facility] [address], [place] [address] Adina Sangeeta METAMYELOCYTE % Normal [facility] Comment on above: Performed By: #### Holland MARK #### [facility] [place] [facility] [address] [address] Adina Sangeeta MONOM# 0.10 103/ul Critically low 0.30-0.80 [facility] Comment on above: Performed By: #### Holland MARK #### [facility] [place] [facility] [address] [id number] Adina Sangeeat MONOM% 1.0 % Critically low 1.7-12.0 [facility] Comment on above: Performed By: #### Holland MARK #### [facility] [place] [facility] [address] [address] Adina Sangeeta MYELOCYTE # Normal [facility] Comment on above: Performed By: #### C JAS #### [facility] [place] [facility] [address] [place], [place] [address] Adina Sangeeta MYELOCYTE % Normal [facility] Comment on above: Performed By: #### Holland MARK #### [facility] [place] [facility] [address] [place] [address] Adina Sangeeta NRBC Normal [facility] Comment on above: Performed By: #### Holland MARK #### [facility] [place] [facility] [address] [place], [place] [address] Adina Sangeeta Platelet mean volume (Bld) [Entitic vol] 10.7 fL Normal 9.5-13.5 [facility] Comment on above: Performed By: #### Holland MARK #### [facility] [address] [place], [place] [address] Adina Sangeeta Platelets (Bld) [#/Vol] 230 103/ul Normal 150-450 [facility] [place] Comment on above: Performed By: #### C JAS #### [facility] [place] [facility] [address] [place], [place] [address] Adina Sangeeta RBC (Bld) [#/Vol] 4.47 106/ul Critically low 4.70-6.10 [facility] Comment on above: Performed By: #### C JAS #### [facility] [place] [facility] [address] [place], [place] [address] Adina Sangeeta SEG # 9.77 103/ul Critically high 1.40-6.50 [facility] Comment on above: Performed By: #### C JAS #### [facility] [place] [facility] [address], [place] [address] Adina Sangeeta Segmented neutrophils/100 WBC (Bld) 93.0 % Critically high 43.0-75.0 [facility] Comment on above: Performed By: #### C JAS #### [facility] [place] [facility] [address] [place], [place] [address] Adina Sangeeta WBC (Bld) [#/Vol] 10.5 103/ul Normal 4.0-11.0 [facility] Comment on above: Performed By: #### C JAS #### [facility] [place] [facility] [address] [place], [place] [address] Adina Sangeeta PROF CHEM 8 (BAS METB)on Anion gap [Moles/Vol] 15.2 mmol/L Normal [facility] Comment on above: Performed By: #### B MP #### [facility] [address] [place], [place] [address] Adina Sangeeta Calcium [Mass/Vol] 8.6 mg/dL Normal 8.4-10.2 [facility] Comment on above: Performed By: #### B MP #### [facility] [place] [facility] [address] [place] [address] Adina Sangeeta Chloride [Moles/Vol] 105 mmol/L Normal 98-107 [facility] Comment on above: Performed By: #### B MP #### [facility] [place] [facility] [address] [place], [place] [address] Adina Sangeeta CO2 [Moles/Vol] 26.0 mmol/L Normal 22.0-30.0 [facility] Comment on above: Performed By: #### B MP #### [facility] [place] [facility] [address] [place], [place] [address] Adina Sangeeta Creatinine [Mass/Vol] 0.77 mg/dL Normal 0.66-1.25 [facility] Comment on above: Performed By: #### B MP #### [facility] [place] [facility] [address] [place], [place] [address] Adina Sangeeta EGFR-AF LITHUANIAN >60 Normal >=60 [facility] Comment on above: Performed By: #### B MP #### [facility] [place] [facility] [address], [place] [address] Adina Sangeeta EGFR-NON AF LITHUANIAN >60 Normal >=60 [facility] Comment on above: Performed By: #### B MP #### [facility] [place] [facility] [address], [place] [address] Adina Sangeeta Glucose [Mass/Vol] 141 mg/dL Critically high 74-106 [facility] Comment on above: Performed By: #### B MP #### [facility] [place] [facility] [address], [place] [address] Adina Sangeeta Potassium [Moles/Vol] 4.2 mmol/L Normal 3.4-5.0 [facility] Comment on above: Performed By: #### B MP #### [facility] [place] [facility] [address] [place] [address] Adina Sangeeta Sodium [Moles/Vol] 142 mmol/L Normal 137-145 [facility] Comment on above: Performed By: #### B MP #### [facility] [place] [facility] [address] [place] [address] Adina Sangeeta Urea nitrogen [Mass/Vol] 12.0 mg/dL Normal 9.0-20.0 [facility] Comment on above: Performed By: #### B MP #### [facility] [place] [facility] [address] [place] [address] Aidna Sangeeta Urea nitrogen/Creatinine [Mass ratio] 15.6 mg/mg Normal [facility] Comment on above: Performed By: #### B MP #### [facility] [place] [facility] [address], [place] [address] Adina Sangeeta CARDIAC SRIDHAR 3-6on 9 CK [Catalytic activity/Vol] 232 U/L Critically high 55-170 [facility] Comment on above: Performed By: #### C MREP #### [facility] [place] [facility] [address], [place] [address] Adina Sangeeta CK.MB [Mass/Vol] 0.59 ng/mL Normal <=2.37 [facility] Comment on above: Performed By: #### C MREP #### [facility] [place] [facility] [address] [place], [place] [address] Adina Sangeeta INR Coag (Bld) [Relative time] SEE BELOW Normal [facility] [place] Comment on above: Result Comment: <0.0 34 ng/ml NEGATIVE 0.034-0.119 INDETERMINATE 0.120 AMI CUT OFF Performed By: #### C MREP #### [facility] [place] [facility] [address] [place], [place] [address] Adina Sangeeta TROP 0.063 ng/mL Critically high <=0.034 [facility] Comment on above: Performed By: #### C MREP #### [facility] [place] [facility] [address] [place] [address] Adina Sangeeta CK [Catalytic activity/Vol] 238 U/L Critically high 55-170 [facility] [place] Comment on above: Performed By: #### C MREP #### [facility] [place] [facility] [address] [place] [address] Adina Sangeeta CK.MB [Mass/Vol] 0.57 ng/mL Normal <=2.37 [facility] Comment on above: Performed By: #### C MREP #### [facility] [place] [facility] [address] [place], [place] [address] Adina Sangeeta INR Coag (Bld) [Relative time] SEE BELOW Normal [facility] [place] Comment on above: Result Comment: <0.0 34 ng/ml NEGATIVE 0.034-0.119 INDETERMINATE 0.120 AMI CUT OFF Performed By: #### C MREP #### [facility] [place] [facility] [address] [place] [address] Adina Sangeeta TROP 0.083 ng/mL Critically high <=0.034 [facility] Comment on above: Performed By: #### C MREP #### [facility] [place] [facility] [address] [place], [place] [address] Adina Sangeeta CBC AUTO DIFFon 11-25-2018 Basophils (Bld) [#/Vol] 0.0 103/ul Normal 0.0-0.1 [facility] [place] Comment on above: Performed By: #### C BC #### [facility] [place] [facility] [address] [place], [place] [address] Adina Sangeeta Basophils/100 WBC (Bld) 0.2 % Normal 0.2-2.0 [facility] Comment on above: Performed By: #### C BC #### [facility] [place] [facility] [address] [place] [address] Adina Sangeeta Eosinophils (Bld) [#/Vol] 0.1 103/ul Normal 0.0-0.7 [facility] Comment on above: Performed By: #### C BC #### [facility] [place] [facility] [address] [place] [address] Adina Sangeeta Eosinophils/100 WBC (Bld) 0.7 % Critically low 0.9-7.0 [facility] Comment on above: Performed By: #### C BC #### [facility] [place] [facility] [address] [place] [address] Adina Sangeeta Erythrocyte distribution width (RBC) [Ratio] 11.9 % Normal 11.0-15.0 [facility] Comment on above: Performed By: #### C BC #### [facility] [place] [facility] [address] [place] [address] Adina Sangeeta Hematocrit (Bld) [Volume fraction] 35.9 % Critically low 42.0-54.0 [facility] Comment on above: Performed By: #### C BC #### [facility] [place] [facility] [address] [place] [address] Adina Snageeta Hemoglobin (Bld) [Mass/Vol] 12.0 g/dL Critically low 14.0-18.0 [facility] Comment on above: Performed By: #### C BC #### [facility] [place] [facility] [address] [place] [address] Adina Sangeeta IG # 0.05 10e3/ul Critically high 0.00-0.03 The [facility] Comment on above: Performed By: #### C BC #### [facility] [place] [facility] [address] [place] [address] Adina Sangeeta IG % 0.6 % Critically high 0.0-0.5 The [facility] Comment on above: Performed By: #### C BC #### [facility] [place] [facility] [address] [place] [address] Adina Sangeeta Lymphocytes (Bld) [#/Vol] 0.8 103/ul Critically low 1.2-3.8 [facility] Comment on above: Performed By: #### C BC #### [facility] [place] [facility] [address] [place], [place] [address] Adina Sangeeta Lymphocytes/100 WBC (Bld) 9.9 % Critically low 20.5-60.0 [facility] Comment on above: Performed By: #### C BC #### [facility] [place] [facility] [address] [place], [place] [address] Adina Sangeeta MANUAL DIFF REQ NO Normal [facility] Comment on above: Performed By: #### C BC #### [facility] [place] [facility] [address] [place], [place] [address] Adina Sangeeta MCH (RBC) [Entitic mass] 29.3 pg Normal 25.9-34.0 [facility] Comment on above: Performed By: #### C BC #### [facility] [place] [facility] [address] [place] [address] Adinatianna Alarconen MCHC (RBC) [Mass/Vol] 33.4 g/dL Normal 29.9-35.2 [facility] [place] Comment on above: Performed By: #### C BC #### [facility] [address] [place], [place] [address] Adinatianna Alarconen MCV (RBC) [Entitic vol] 87.8 fL Normal 80.0-94.0 [facility] Comment on above: Performed By: #### C BC #### [facility] [place] [facility] [address] [place], [place] [address] Adina Sangeeta Monocytes (Bld) [#/Vol] 0.7 103/ul Normal 0.3-0.8 [facility] [place] Comment on above: Performed By: #### C BC #### [facility] [place] [facility] [address] [place], [place] [address] Adina Sangeeta Monocytes/100 WBC (Bld) 9.1 % Normal 1.7-12.0 [facility] Comment on above: Performed By: #### C BC #### [facility] [place] [facility] [address] [place], [place] [address] Adina Sangeeta Neutrophils (Bld) [#/Vol] 6.5 103/ul Normal 1.4-6.5 [facility] Comment on above: Performed By: #### C BC #### [facility] [place] [facility] [address] [place] [address] Adina Rutherford Neutrophils/100 WBC (Bld) 79.5 % Critically high 43.0-75.0 [facility] Comment on above: Performed By: #### C BC #### [facility] [place] [facility] [address] [place] [address] Adinatianna Alarconen Platelet mean volume (Bld) [Entitic vol] 9.7 fL Normal 9.5-13.5 [facility] Comment on above: Performed By: #### C BC #### [facility] [address] [place] [address] Adina Sangeeta Platelets (Bld) [#/Vol] 198 103/ul Normal 150-450 [facility] Comment on above: Performed By: #### C BC #### [facility] [place] [facility] [address] [place] [address] Adina Alarconen RBC (Bld) [#/Vol] 4.09 106/ul Critically low 4.70-6.10 [facility] Comment on above: Performed By: #### C BC #### [facility] [place] [facility] [address] [place] [address] Adinatianna Alarconen WBC (Bld) [#/Vol] 8.2 103/ul Normal 4.0-11.0 [facility] Comment on above: Performed By: #### C BC #### [facility] [place] [facility] [address] [place] [address] Adina Sangeeta LACTATE/LACTIC ACIDon 2018 Lactate [Moles/Vol] 1.1 mmol/L Normal 0.7-2.1 [facility] Comment on above: Performed By: #### L ACT #### [facility] [place] [facility] [address] [place] [address] Adinatianna Rutherford LIPASEon 11-25-2018 Lipase [Catalytic activity/Vol] 108.0 U/L Normal 23.0-300.0 [facility] Comment on above: Performed By: #### C JOHANNY HERBERTA, TROP #### [facility] [place] [facility] [address] [id number] Adinatianna Rutherford PROF 14(COMP METB)on 019 Albumin [Mass/Vol] 2.7 g/dL Critically low 3.5-5.0 Th e [facility] [place] Comment on above: Performed By: #### C PIEDAD LIPA, TROP #### [facility] [place] [facility] [address] [id number] Adina Sangeeta Albumin/Globulin [Mass ratio] 0.8 {ratio} Normal [facility] Comment on above: Performed By: #### C PIEDAD LIPA, TROP #### [facility] [place] [facility] [address] [address] Adina Sangeeta ALP [Catalytic activity/Vol] 51 U/L Normal 38-126 [facility] Comment on above: Performed By: #### C PIEDAD LIPA, TROP #### [facility] [place] [facility] [address] [address] Adina Sangeeta ALT [Catalytic activity/Vol] 25 U/L Normal 21-72 [facility] Comment on above: Performed By: #### C PIEDAD LIPA, TROP #### [facility] [place] [facility] [address] [id number] Adina Sangeeta Anion gap [Moles/Vol] 13.2 mmol/L Normal [facility] Comment on above: Performed By: #### C PIEDAD LIPA, TROP #### [facility] [place] [facility] [address] [address] Adina Sangeeta AST [Catalytic activity/Vol] 21 U/L Normal 17-59 The [facility] Comment on above: Performed By: #### C MP LIPA, TROP #### [facility] [address] [id number] Adina Sangeeta Bilirubin Ql (U) 0.3 mg/dL Normal 0.2-1.3 The [facility] Comment on above: Performed By: #### C MP LIPA, TROP #### [facility] [address] [address] Adina Sangeeta Calcium [Mass/Vol] 8.1 mg/dL Critically low 8.4-10.2 Th e [facility] Comment on above: Performed By: #### C LEO HERBERT, TROP #### [facility] [address] [place] [address] Adina Sangeeta Chloride [Moles/Vol] 104 mmol/L Normal 98-107 [facility] Comment on above: Performed By: #### C JOHANNY HERBERTA, TROP #### [facility] [address] [place] [address] Adina Sangeeta CO2 [Moles/Vol] 28.3 mmol/L Normal 22.0-30.0 The [facility] Comment on above: Performed By: #### C JOHANNY HERBERTA, TROP #### [facility] [address] [place] [address] Adina Sangeeta Creatinine [Mass/Vol] 0.95 mg/dL Normal 0.66-1.25 [facility] Comment on above: Performed By: #### C PIEDAD LIPA, TROP #### [facility] [address] [place] [address] Adina Sangeeta EGFR-AF LITHUANIAN >60 Normal >=60 The [facility] Comment on above: Performed By: #### C JOHANNY HERBERTA, TROP #### [facility] [address] [place] [address] Adina Sangeeta EGFR-NON AF LITHUANIAN >60 Normal >=60 The [facility] Comment on above: Performed By: #### C PIEDAD LIPA, TROP #### [facility] [address] [place] [address] Adina Sangeeta Globulin (S) [Mass/Vol] 3.5 g/dL Normal [facility] Comment on above: Performed By: #### C PIEDAD LIPA, TROP #### [facility] [address] [place] [address] Adina Sangeeta Glucose [Mass/Vol] 101 mg/dL Normal 74-106 [facility] Comment on above: Performed By: #### C PIEDAD LIPA, TROP #### [facility] [address] [place] [address] Adina Sangeeta Potassium [Moles/Vol] 3.5 mmol/L Normal 3.4-5.0 [facility] Comment on above: Performed By: #### C PIEDAD LIPA, TROP #### [facility] [address] [place] [address] Adina Sangeeta Protein [Mass/Vol] 6.2 g/dL Normal 6.1-8.2 [facility] Comment on above: Performed By: #### C MP LIPA, TROP #### [facility] [address] [place] [address] Adina Sangeeta Sodium [Moles/Vol] 142 mmol/L Normal 137-145 [facility] Comment on above: Performed By: #### C PIEDAD LIPA, TROP #### [facility] [address] [place] [address] Adina Sangeeta Urea nitrogen [Mass/Vol] 11.0 mg/dL Normal 9.0-20.0 [facility] Comment on above: Performed By: #### C PIEDAD LIPA, TROP #### [facility] [address] [place] [address] Adina Sangeeta Urea nitrogen/Creatinine [Mass ratio] 11.6 mg/mg Normal [facility] Comment on above: Performed By: #### C PIEDAD LIPA, TROP #### [facility] [address] [place] [address] Adina Sangeeta TROPONIN - Ion 11-25-2018 Troponin I.cardiac [Mass/Vol] 0.075 ng/mL Critically high <=0.034 [facility] Comment on above: Result Comment: TEST REPEATED CRITICAL VALUE VERIFIED Performed By: #### C MP, LIPA, TROP #### [facility] [address] [place] [address] Adina Sangeeta Troponin I.cardiac [Mass/Vol] SEE BELOW Normal [facility] Comment on above: Result Comment: <0.0 34 ng/ml NEGATIVE 0.034-0.119 INDETERMINATE 0.120 AMI CUT OFF Performed By: #### C MP, LIPA, TROP #### [facility] [address] [place] [address] Adina Sangeeta XR CHEST 2 Von 11-25-2018 XR CHEST 2 V Patient: YECENIA HECK Exam Date: 11/25/2018 : 1970 Gender:M Ordering : DR TRACE CONCEPCION Admission #: [id number] Family : DR HEATHER FERNANDEZ . Order #: [id number] CLICK HERE TO VIEW EXAM RADIOLOGY REPORT [...] Rivera M.D. on 11/25/2018 at 10:18 Normal [facility] Vital Signs Date Time Vital Sign Value Performing Clinician Facility 05-02-2023 14:10-0500 Body height 187.96 cm Azeb Gates Other [facility] Other 05-02-2023 14:10-0500 Body mass index (BMI) [Ratio] 26.21 kg/m2 Azeb Gates Other [facility] Other 05-02-2023 14:10-0500 Body temperature 98.7 [degF] Azeb Gates Other [facility] Other 05-02-2023 14:10-0500 Body weight 92.63 kg Azeb Gates Other [facility] Other 05-02-2023 14:10-0500 Respiratory rate 18 /min Azeb Gates Other [facility] Other 05-02-2023 14:10-0500 SaO2% (BldA) [Mass fraction] 97 % Azeb Gates Other [facility] Other Encounters Encounter Date Encounter Type Care Provider Facility Start: 05-02-2023 End: 05-02-2023 ambulatory Azeb Gates Other [facility] Other Start: 05-02-2023 Office outpatient ne w 30 minutes Azeb Gates [facility] Start: 01-01-2023 End: 01-02-2023 ambulatory Eloy R JEANA Facility:[facility] Start: 12-20-2022 ambulatory Ruth YASH Facility:[facility] Start: 12-20-2022 ambulatory Ruth BERRIOS Facility:[facility] Start: 02-05-2022 End: 02-06-2022 ambulatory Ruth BERRIOS Facility:[facility] Start: 04-16-2019 End: 04-17-2019 Patient encounter procedure HEATHER FERNANDEZ Facility:[facility] Start: 11-25-2018 End: 11-26-2018 Patient encounter procedure HEATHER FERNANDEZ Facility:[facility] Procedures Date Procedure Procedure Detail Performing Clinician Start: 11-25-2018 Microscopic examinat ion of blood, culture HEATHER FERNANDEZ Comment on above: Performed By: #### L ACT #### [facility] [address] [place] [address] Adina Rutherford Payers Date Payer Category Payer Private Health Insurance [facility] [id number] 1970 Unknown [id number] [id number] [id number] 1970 Unknown [id number] [id number] [id number] 1970 Unknown [id number] [id number] [id number] 1970 Unknown [id number] 2.16.8 [id number] 1970 Unknown [id number] [id number] [id number] 1957 Private Health Insurance [facility] [id number] Social History Date Type Detail Facility Unknown if ever smoked [facility] Other Sex Assigned At Sex Assigned At Bir th [facility] Other Evaluation note 05-02-2023 Note Date & Type Note Facility 05-02-2023 Evaluation note Encounter Date Diagnosis Assessment Notes Apr, Bronchitis (ICD-10 - J40) Discussed diagnosis with patient in detail. Advised patient that cough may linger for 3 weeks. Will treat today with antibiotic. Reviewed allergies and recent antibiotic use. Advised to take medications as prescribed, reviewed side effects of steroid, take with food and plenty of water, finish entire course. Encouraged supportive care as directed, push fluids and rest, may use Tylenol as needed for fever/discomfor t, cool mist humidifier. Patient to follow up with PCP in 2-3 days. Immediate eval if SOB, difficulty breathing, chest pain, dizziness, or other concerning symptoms. Patient verbalizes understanding and is agreeable to treatment plan [facility] Other Clinical Note 01-01-2023 Note Date & Type [...] Immunizations Vaccine Date Status Comments SARS-CoV-2 (COVID-19) [id number] 02/23/2022 Recorded SARS-CoV-2 (COVID-19) mRNA BNT-162b2 vax 02/18/2021 Recorded SARS-CoV-2 (COVID-19) mRNA BNT-162b2 vax 07/08/2020 Given Prophylaxis SARS-CoV-2 (COVID-19) mRNA BNT-162b2 vax 06/10/2020 Given Prophylaxis [facility] Comment on above: Result Comment: Elec tronically Signed By: JEANA SEBASTIAN, Eloy Joseph\Date and Time Signed: 01/01/23 11:17 EDT History general Narrative - Reported Note Date & Type Note Facility History general Narrative - Reported Type Surgical History vasectomy Hospitalization History See Above [facility] Other Summary Purpose Family History No Family History Records FoundNo Family History Records Found Advance Directives No Advanced Directives Records FoundNo Advanced Directives Records Found Additional Source Comments (unrecognized sect ion and content) No Status Records FoundNo Status Records Found INFORMATION SOURCE (unrecogn ized section and content) DATE CREATED AUTHOR 05/14/2019 [facility] DATE CREATED AUTHOR AUTHOR'S ORGANIZ ATION 01/02/2023 [facility] REASON FOR VISIT (unrecogniz ed section and content) chest congestion FOR RECORDS PERTAINING TO PATIENTS WHO ARE [...] BE BASED ON THE PRIMARY CLINICAL RECORDS. [facility] [employer] [facility]. provides no warranty or guarantee of the accuracy or completeness of information in this document.
[2023-05-08 06:54] VITALS: BP 140/83; PULSE 86; RESP 16; TEMP 36; O2SAT 94; BMI 25.7
[2023-05-08] MEDS: LACTATED RINGER'S SOLUTION 1,000 ML 50 ML IV (07:04)
[2023-05-08 07:41] VITALS: BP 140/83; PULSE 82; RESP 18; TEMP 37.2; O2SAT 99
[2023-05-08 07:56] VITALS: BP 112/82; PULSE 71; RESP 16; O2SAT 97
[2023-05-08 08:10] VITALS: BP 122/80; PULSE 81; RESP 16; O2SAT 98
== END 2023-05-08 08:11 | disposition home or self-care (01) ==
PROVIDERS: PCP Family Medicine; Visit Provider Surgery
PROC: (CPT 811; principal; 2023-05-08 07:30)
DX: Z12.11 Encounter for screening for malignant neoplasm of colon (principal); E66.3 Overweight; Z68.27 Body mass index [BMI] 27.0-27.9, adult
CPT/HCPCS: 45378; J2704

== ENCOUNTER 2024-01-29 08:11 | Outpatient (OUT) | payer OTHER, SELFPAY ==
--- OUTSIDE RECORDS SUMMARY | 2024-01-29 08:21 | XMS_ITS | CCD ---
Author Organization [facility] Team Providers Care Business Objects Architect Name Role Phone HEATHER FERNANDEZ Primary Care Unavailable RAVI RIVERA V Consulting Unavailable HEATHER FERNANDEZ Admitting Unavailable HEATHER FERNANDEZ Attending Unavailable HEATHER FERNANDEZ Consulting Unavailable TRACE CONCEPCION Consulting Unavailable NADERER, HEATHER Elizabeth Admitting Unavailable NADHEATHER DRUAN Attending Unavailable HEATHER FERNANDEZ Primary Care Unavailable RAVI RIVERA V Consulting Unavailable HEATHER FERNANDEZ Consulting Unavailable Azeb Gates Unavailable Ruth BERRIOS Attending Unavailable Eloy HILLS Attending Unavailable Allergies Allergy Classification Reported Allergen(s) Allergy Type Date of Onset Reaction(s) Facility (1 source) nabumetone; Translations: [nabumetone] Drug Allergy [facility] Repository (1 source) No Known Medication Allergies; Translations: [No Known Medication Allergies] Propensity to adverse reactions (disorder) [facility] Repository Medications Current Medications Medication Drug Class(es) [...] oral tablet (1 source) alpha-Adrenergic Agonist, Uncompetitive J-cetsrh-H-aspartat e Receptor Antagonist, Sigma-1 Agonist Start: 11-17-2018 [...] Name Value Interpretation Reference Range Facil ity Outside Colonoscopyon 2023 Outside Colonoscopy [id number] #[id number] Normal [facility] Reminderson 05-09-2023 Reminders - From: Malissa Patel LPN To: [facility] - Clinical; Sent: 05/09/2023 10:15:21 EST Show up: 04/07/2033 07:00:00 EST Subject: colonoscopy recall Due Date/Time: 05/08/2033 07:00:00 EST Reminder/Recall Patient due for screening colonoscopy 05/08/2033. Normal [facility] CARDIAC STRESS TESTon 2019 CARDIAC STRESS TEST [...] rate of 74 beats per minute. The ID interval is 0.16, the QRS is 0.08 [...] was injected with images and interpretation pending. [facility] Signed and Approved by: DR ADRI PRICE 04/24/2019 08:19:00 Normal [facility] NM STRESS/REST MULTIon 04-16 NM STRESS/REST MULTI Patient: YECENIA HECK Exam Date: 04/16/2019 : 1970 Gender:M Ordering : DR HEATHER FERNANDEZ . Admission #: [id number] Family : Order #: [id number] CLICK HERE TO VIEW EXAM RADIOLOGY REPORT [...] Rivera M.D. on 04/16/2019 at 14:49 Normal [facility] CBC W MANUAL DIFFon 11-27-19 19 ATYPICAL LYMPH # Normal [facility] Comment on above: Performed By: #### C [facility] #### [facility] [address] [place], [place] [id number] Adina Sangeeta ATYPICAL LYMPH % Normal [facility] Comment on above: Performed By: #### C JAS #### [facility] [address] [place] [address] Adina Sangeeta BAND # 0.3 103/ul Normal 0.0-0.3 [facility] Comment on above: Performed By: #### C JAS #### [facility] [address] [place] [address] Adina Sangeeta BAND % 3 % Normal 0-5 [facility] Comment on above: Performed By: #### C JAS #### [facility] [address] [place] [address] Adina Sangeeta BASOM # 0.00 103/ul Normal 0.00-0.10 [facility] Comment on above: Performed By: #### C JAS #### [facility] [address] [place] [address] Adina Sangeeta BASOM % 0.0 % Critically low 0.2-2.0 [facility] Comment on above: Performed By: #### Holland MARK #### [facility] [address] [place] [address] Adina Sangeeta BLAST # Normal [facility] Comment on above: Performed By: #### C JAS #### [facility] [address] [place] [address] Adina Sangeeta BLAST % Normal [facility] Comment on above: Performed By: #### Holland MARK #### [facility] [address] [place] [address] Adina Sangeeta CORRECTED WBC Normal 4.0-11.0 [facility] Comment on above: Performed By: #### C JAS #### [facility] [address] [place], [place] [address] Adina Sangeeta Eosinophils (Bld) [#/Vol] 0.00 103/ul Normal 0.00-0.70 [facility] Comment on above: Performed By: #### Holland MARK #### [facility] [address] [place] [address] Adina Sangeeta Eosinophils/100 WBC (Bld) 0.0 % Critically low 0.9-7.0 [facility] Comment on above: Performed By: #### Holland MARK #### [facility] [address] [id number] Adinatianna Rutherford Erythrocyte distribution width (RBC) [Ratio] 11.9 % Normal 11.0-15.0 [facility] Comment on above: Performed By: #### C JAS #### [facility] [address] [id number] Adina Sangeeta Hematocrit (Bld) [Volume fraction] 39.3 % Critically low 42.0-54.0 [facility] Comment on above: Performed By: #### C JAS #### [facility] [address] [id number] Adina Sangeeta Hemoglobin (Bld) [Mass/Vol] 13.0 g/dl Critically low 14.0-18.0 [facility] Comment on above: Performed By: #### Holland MARK #### [facility] [address] [address] Adina Sangeeta LYMPHM # 0.32 103/ul Critically low 1.20-3.80 The [facility] Comment on above: Performed By: #### Holland MARK #### [facility] [address] [id number] Adina Sangeeta LYMPHM% 3.0 % Critically low 20.5-60.0 [facility] Comment on above: Performed By: #### C JAS #### [facility] [address] [id number] Adina Alarconen MCH (RBC) [Entitic mass] 29.1 pg Normal 25.9-34.0 [facility] Comment on above: Performed By: #### Holland MARK #### [facility] [address] [id number] Adinatianna Rutherford MCHC (RBC) [Mass/Vol] 33.1 g/dl Normal 29.9-35.2 [facility] Comment on above: Performed By: #### Holland MARK #### [facility] [address] [address] Adinatianna Rutherford MCV (RBC) [Entitic vol] 87.9 fL Normal 80.0-94.0 [facility] Comment on above: Performed By: #### C JAS #### [facility] [address] [place] [address] Adina Sangeeta METAMYELOCYTE # Normal [facility] Comment on above: Performed By: #### Holland MARK #### [facility] [address] [place] [address] Adina Sangeeta METAMYELOCYTE % Normal [facility] Comment on above: Performed By: #### C JAS #### [facility] [address] [place] [address] Adinatianna Alarconen MONOM# 0.10 103/ul Critically low 0.30-0.80 [facility] Comment on above: Performed By: #### Holland MARK #### [facility] [address] [place] [address] Adinatianna Rutherford MONOM% 1.0 % Critically low 1.7-12.0 [facility] Comment on above: Performed By: #### oHlland MARK #### [facility] [address] [place] [address] Adina Sangeeta MYELOCYTE # Normal [facility] Comment on above: Performed By: #### Holland MARK #### [facility] [address] [place] [address] Adina Sangeeta MYELOCYTE % Normal [facility] Comment on above: Performed By: #### Holland MARK #### [facility] [address] [place] [address] Adina Sangeeta NRBC Normal [facility] Comment on above: Performed By: #### Holland MARK #### [facility] [address] [place] [address] Adina Sangeeta Platelet mean volume (Bld) [Entitic vol] 10.7 fL Normal 9.5-13.5 [facility] Comment on above: Performed By: #### Holland MARK #### [facility] [address] [place], [place] [address] Adina Sangeeta Platelets (Bld) [#/Vol] 230 103/ul Normal 150-450 [facility] Comment on above: Performed By: #### Holland MARK #### [facility] [address] [place] [address] Adina Sangeeta RBC (Bld) [#/Vol] 4.47 106/ul Critically low 4.70-6.[address] [facility] Comment on above: Performed By: #### Holland MARK #### [facility] [address] [place], [place] [address] Adina Sangeeta SEG # 9.77 103/ul Critically high 1.40-6.50 [facility] Comment on above: Performed By: #### Hollnad MARK #### [facility] [address] [place], [place] [address] Adina Sangeeta Segmented neutrophils/100 WBC (Bld) 93.0 % Critically high 43.0-75.0 [facility] Comment on above: Performed By: #### Holland MARK #### [facility] [address] [place] [address] Adina Sangeeta WBC (Bld) [#/Vol] 10.5 103/ul Normal 4.0-11.0 [facility] Comment on above: Performed By: #### Holland MARK #### [facility] [address] [place] [address] Adina Sangeeta PROF CHEM 8 (BAS METB)on Anion gap [Moles/Vol] 15.2 mmol/L Normal [facility] Comment on above: Performed By: #### B MP #### [facility] [address] [place] [address] Adina Sangeeta Calcium [Mass/Vol] 8.6 mg/dL Normal 8.4-10.2 [facility] Comment on above: Performed By: #### B MP #### [facility] [address] [place] [address] Adina Sangeeta Chloride [Moles/Vol] 105 mmol/L Normal 98-107 [facility] Comment on above: Performed By: #### B MP #### [facility] [address] [address] Adina Sangeeta CO2 [Moles/Vol] 26.0 mmol/L Normal 22.0-30.0 [facility] Comment on above: Performed By: #### B MP #### [facility] [address] [address] Adina Sangeeta Creatinine [Mass/Vol] 0.77 mg/dL Normal 0.66-1.25 [facility] Comment on above: Performed By: #### B MP #### [facility] [address] [id number] Adina Sangeeta EGFR-AF BANGLADESHI >60 Normal >=60 [facility] Comment on above: Performed By: #### B MP #### [facility] [address] [address] Adina Sangeeta EGFR-NON AF BANGLADESHI >60 Normal >=60 [facility] Comment on above: Performed By: #### B MP #### [facility] [address] [address] Adina Sangeeta Glucose [Mass/Vol] 141 mg/dL Critically high 74-106 T [facility] Comment on above: Performed By: #### B MP #### [facility] [address] [id number] Adina Sangeeta Potassium [Moles/Vol] 4.2 mmol/L Normal 3.4-5.0 [facility] Comment on above: Performed By: #### B MP #### [facility] [address] [address] Adina Sangeeta Sodium [Moles/Vol] 142 mmol/L Normal 137-145 [facility] Comment on above: Performed By: #### B MP #### [facility] [address] [address] Adina Sangeeta Urea nitrogen [Mass/Vol] 12.0 mg/dL Normal 9.0-20.0 [facility] Comment on above: Performed By: #### B MP #### [facility] [address] [address] Adina Sangeeta Urea nitrogen/Creatinine [Mass ratio] 15.6 mg/mg Normal [facility] Comment on above: Performed By: #### B MP #### [facility] [address] [place] [address] Adina Rutherford CARDIAC SRIDHAR 3-6on 9 CK [Catalytic activity/Vol] 232 U/L Critically high 55-170 [facility] Comment on above: Performed By: #### C MREP #### [facility] [address] [place] [address] Adinatianna Alarconen CK.MB [Mass/Vol] 0.59 ng/mL Normal <=2.37 [facility] Comment on above: Performed By: #### C MREP #### [facility] [address] [place], [place] [address] Adina Sangeeta INR Coag (Bld) [Relative time] SEE BELOW Normal [facility] Comment on above: Result Comment: <0.0 34 ng/ml NEGATIVE 0.034-0.119 INDETERMINATE 0.120 AMI CUT OFF Performed By: #### C MREP #### [facility] [address] [place] [address] Adina Sangeeta TROP 0.063 ng/mL Critically high <=0.034 [facility] Comment on above: Performed By: #### C MREP #### [facility] [address] [place] [address] Adina Rutherford CK [Catalytic activity/Vol] 238 U/L Critically high 55-170 [facility] Comment on above: Performed By: #### C MREP #### [facility] [address] [place] [address] Adina Sangeeta CK.MB [Mass/Vol] 0.57 ng/mL Normal <=2.37 [facility] Comment on above: Performed By: #### C MREP #### [facility] [address] [place], [place] [address] Adina Sangeeta INR Coag (Bld) [Relative time] SEE BELOW Normal [facility] Comment on above: Result Comment: <0.0 34 ng/ml NEGATIVE 0.034-0.119 INDETERMINATE 0.120 AMI CUT OFF Performed By: #### C MREP #### [facility] [address] [place], [place] [address] Adina Sangeeta TROP 0.083 ng/mL Critically high <=0.034 [facility] Comment on above: Performed By: #### C MREP #### [facility] [address] [place], [place] [address] Adina Sangeeta CBC AUTO DIFFon 11-25-2018 Basophils (Bld) [#/Vol] 0.0 103/ul Normal 0.0-0.1 [facility] Comment on above: Performed By: #### C BC #### [facility] [address] [place], [place] [address] Adina Sangeeta Basophils/100 WBC (Bld) 0.2 % Normal 0.2-2.0 [facility] Comment on above: Performed By: #### C BC #### [facility] [address] [place], [place] [address] Adina Sangeeta Eosinophils (Bld) [#/Vol] 0.1 103/ul Normal 0.0-0.7 [facility] Comment on above: Performed By: #### C BC #### [facility] [address] [place], [place] [address] Adina Sangeeta Eosinophils/100 WBC (Bld) 0.7 % Critically low 0.9-7.0 [facility] Comment on above: Performed By: #### C BC #### [facility] [address] [place], [place] [address] Adina Sangeeta Erythrocyte distribution width (RBC) [Ratio] 11.9 % Normal 11.0-15.0 [facility] Comment on above: Performed By: #### C BC #### [facility] [address] [place], [place] [address] Adina Sangeeta Hematocrit (Bld) [Volume fraction] 35.9 % Critically low 42.0-54.0 [facility] Comment on above: Performed By: #### C BC #### [facility] [address] [place], [place] [address] Adina Sangeeta Hemoglobin (Bld) [Mass/Vol] 12.0 g/dL Critically low 14.0-18.0 [facility] Comment on above: Performed By: #### C BC #### [facility] [address] [place], [place] [address] Adina Sangeeta IG # 0.05 10e3/ul Critically high 0.00-0.[address] [facility] Comment on above: Performed By: #### C BC #### [facility] [address] [place] [address] Adina Sangeeta IG % 0.6 % Critically high 0.0-0.5 [facility] Comment on above: Performed By: #### C BC #### [facility] [address] [place] [address] Adina Sangeeta Lymphocytes (Bld) [#/Vol] 0.8 103/ul Critically low 1.2-3.8 [facility] Comment on above: Performed By: #### C BC #### [facility] [address] [place] [address] Adina Sangeeta Lymphocytes/100 WBC (Bld) 9.9 % Critically low 20.5-60.0 [facility] Comment on above: Performed By: #### C BC #### [facility] [address] [place] [address] Adinatianna Rutherford MANUAL DIFF REQ NO Normal [facility] Comment on above: Performed By: #### C BC #### [facility] [address] [place] [address] Adinatianna Alarconen MCH (RBC) [Entitic mass] 29.3 pg Normal 25.9-34.0 [facility] Comment on above: Performed By: #### C BC #### [facility] [address] [place], [place] [address] Adinatianna Rutherford MCHC (RBC) [Mass/Vol] 33.4 g/dL Normal 29.9-35.2 [facility] Comment on above: Performed By: #### C BC #### [facility] [address] [place] [address] Adina Sangeeta MCV (RBC) [Entitic vol] 87.8 fL Normal 80.0-94.0 [facility] Comment on above: Performed By: #### C BC #### [facility] [address] [id number] Adina Sangeeta Monocytes (Bld) [#/Vol] 0.7 103/ul Normal 0.3-0.8 [facility] Comment on above: Performed By: #### C BC #### [facility] [address] [place], [place] [address] Adina Sangeeta Monocytes/100 WBC (Bld) 9.1 % Normal 1.7-12.0 [facility] Comment on above: Performed By: #### C BC #### [facility] [address] [place], [place] [address] Adina Sangeeta Neutrophils (Bld) [#/Vol] 6.5 103/ul Normal 1.4-6.5 [facility] Comment on above: Performed By: #### C BC #### [facility] [address] [place], [place] [address] Adina Sangeeta Neutrophils/100 WBC (Bld) 79.5 % Critically high 43.0-75.0 [facility] Comment on above: Performed By: #### C BC #### [facility] [address] [place], [place] [address] Adina Sangeeta Platelet mean volume (Bld) [Entitic vol] 9.7 fL Normal 9.5-13.5 [facility] Comment on above: Performed By: #### C BC #### [facility] [address] [place], [place] [address] Adina Sangeeta Platelets (Bld) [#/Vol] 198 103/ul Normal 150-450 [facility] Comment on above: Performed By: #### C BC #### [facility] [address] [place], [place] [address] Adina Sangeeta RBC (Bld) [#/Vol] 4.09 106/ul Critically low 4.70-6.[address] [facility] Comment on above: Performed By: #### C BC #### [facility] [address] [place], [place] [address] Adina Sangeeta WBC (Bld) [#/Vol] 8.2 103/ul Normal 4.0-11.[address] [facility] Comment on above: Performed By: #### C BC #### [facility] [address] [place], [place] [address] Adinatianna Alarconen LACTATE/LACTIC ACIDon 2018 Lactate [Moles/Vol] 1.1 mmol/L Normal 0.7-2.[address] [facility] Comment on above: Performed By: #### L ACT #### [facility] [address] [place], [place] [address] Adinatianna Rutherford LIPASEon 11-25-2018 Lipase [Catalytic activity/Vol] 108.0 U/L Normal 23.0-300.0 [facility] Comment on above: Performed By: #### C MP, LIPA, TROP #### [facility] [address] [place] [address] Adina Rutherford PROF 14(COMP METB)on 019 Albumin [Mass/Vol] 2.7 g/dL Critically low 3.5-5.0 [facility] Comment on above: Performed By: #### C MP, LIPA, TROP #### [facility] [address] [place], [place] [address] Adinatianna Rutherford Albumin/Globulin [Mass ratio] 0.8 {ratio} [facility] Comment on above: Performed By: #### C MP, LIPA, TROP #### [facility] [address] [place] [address] Adina Sangeeta ALP [Catalytic activity/Vol] 51 U/L Normal 38-126 [facility] Comment on above: Performed By: #### C MP, LIPA, TROP #### [facility] [address] [place], [place] [address] Adina Sangeeta ALT [Catalytic activity/Vol] 25 U/L Normal 21-72 [facility] Comment on above: Performed By: #### C MP, LIPA, TROP #### [facility] [address] [place], [place] [address] Adina Sangeeta Anion gap [Moles/Vol] 13.2 mmol/L Normal [facility] Comment on above: Performed By: #### C MP, LIPA, TROP #### [facility] [address] [place] [address] Adina Sangeeta AST [Catalytic activity/Vol] 21 U/L Normal 17-59 [facility] Comment on above: Performed By: #### C MP, LIPA, TROP #### [facility] [address] [place] [address] Adina Sangeeta Bilirubin Ql (U) 0.3 mg/dL Normal 0.2-1.3 [facility] Comment on above: Performed By: #### C MP, LIPA, TROP #### [facility] [address] [place] [address] Adina Sangeeta Calcium [Mass/Vol] 8.1 mg/dL Critically low 8.4-10.[address] [facility] Comment on above: Performed By: #### C MP, LIPA, TROP #### [facility] [address] [place] [address] Adina Sangeeta Chloride [Moles/Vol] 104 mmol/L Normal 98-107 [facility] Comment on above: Performed By: #### C MP, LIPA, TROP #### [facility] [address] [place] [address] Adina Sangeeta CO2 [Moles/Vol] 28.3 mmol/L Normal 22.0-30.0 [facility] Comment on above: Performed By: #### C MP, LIPA, TROP #### [facility] [address] [place] [address] Adina Sangeeta Creatinine [Mass/Vol] 0.95 mg/dL Normal 0.66-1.25 [facility] Comment on above: Performed By: #### C MP, LIPA, TROP #### [facility] [address] [place] [address] Adina Sangeeta EGFR-AF BANGLADESHI >60 Normal >=60 [facility] Comment on above: Performed By: #### C MP, LIPA, TROP #### [facility] [address] [place] [address] Adina Sangeeta EGFR-NON AF BANGLADESHI >60 Normal >=60 [facility] Comment on above: Performed By: #### C MP, LIPA, TROP #### [facility] [address] [id number] Adina Sangeeta Globulin (S) [Mass/Vol] 3.5 g/dL Normal [facility] Comment on above: Performed By: #### C MP, LIPA, TROP #### [facility] [address] [address] Adina Sangeeta Glucose [Mass/Vol] 101 mg/dL Normal 74-106 [facility] Comment on above: Performed By: #### C MP, LIPA, TROP #### [facility] [address] [place] [address] Adina Sangeeta Potassium [Moles/Vol] 3.5 mmol/L Normal 3.4-5.0 [facility] Comment on above: Performed By: #### C MP, LIPA, TROP #### [facility] [address] [place] [address] Adina Sangeeta Protein [Mass/Vol] 6.2 g/dL Normal 6.1-8.2 [facility] Comment on above: Performed By: #### C MP, LIPA, TROP #### [facility] [address] [place] [address] Adina Sangeeta Sodium [Moles/Vol] 142 mmol/L Normal 137-145 [facility] Comment on above: Performed By: #### C MP, LIPA, TROP #### [facility] [address] [place] [address] Adina Sangeeta Urea nitrogen [Mass/Vol] 11.0 mg/dL Normal 9.0-20.0 [facility] Comment on above: Performed By: #### C MP, LIPA, TROP #### [facility] [address] [place] [address] Adina Sangeeta Urea nitrogen/Creatinine [Mass ratio] 11.6 mg/mg Normal [facility] Comment on above: Performed By: #### C MP, LIPA, TROP #### [facility] [address] [place] [address] Adina Sangeeta TROPONIN - Ion 11-25-2018 Troponin I.cardiac [Mass/Vol] 0.075 ng/mL Critically high <=0.034 [facility] Comment on above: Result Comment: TEST REPEATED CRITICAL VALUE VERIFIED Performed By: #### C MP, LIPA, TROP #### [facility] [address] [place], [place] [address] Adina Rutherford Troponin I.cardiac [Mass/Vol] SEE BELOW Normal [facility] Comment on above: Result Comment: <0.0 34 ng/ml NEGATIVE 0.034-0.119 INDETERMINATE 0.120 AMI CUT OFF Performed By: #### C MP, LIPA, TROP #### [facility] [address] [address] Adina Rutherford XR CHEST 2 Von 11-25-2018 XR CHEST 2 V Patient: YECENIA HECK Exam Date: 11/25/2018 : 1970 Gender:M Ordering : DR TRACE CONCEPCION Admission #: [id number] Family : DR HEATHER FERNANDEZ . Order #: [id number] CLICK HERE TO VIEW EXAM RADIOLOGY REPORT [...] M.D. on 11/25/2018 at 10:18 Normal [facility] Vital Signs Date Time Vital Sign Value Performing Clinician Facility 05-02-2023 14:10-0500 Body height 187.96 cm Azeb Gates [facility] Other 05-02-2023 14:10-0500 Body mass index (BMI) [Ratio] 26.21 kg/m2 Azeb Gates [facility] Other 05-02-2023 14:10-0500 Body temperature 98.7 [degF] Azeb Gates [facility] Other 05-02-2023 14:10-0500 Body weight 92.63 kg Azeb Gates [facility] Other 05-02-2023 14:10-0500 Respiratory rate 18 /min Azeb Gates Other [facility] Other 05-02-2023 14:10-0500 SaO2% (BldA) [Mass fraction] 97 % Azeb Gates [facility] Other Encounters Encounter Date Encounter Type Care Provider Facility Start: 01-01-2024 End: 01-01-2024 ambulatory Ruth BERRIOS Facility:[facility] Start: 05-08-2023 End: 05-08-2023 ambulatory Eloy HILLS Facility:[facility] Start: 05-02-2023 End: 05-02-2023 ambulatory Azeb Gates Other [facility] Other Start: 05-02-2023 Office outpatient ne w 30 minutes Azeb Gates [facility] Start: 04-16-2019 End: 04-17-2019 Patient encounter procedure HEATHER FERNANDEZ Facility:[facility] Start: 11-25-2018 End: 11-26-2018 Patient encounter procedure HEATHER FERNANDEZ Facility:[facility] Procedures Date Procedure Procedure Detail Performing Clinician Start: 11-25-2018 Microscopic examinat ion of blood, culture HEATHER FERNANDEZ Comment on above: Performed By: #### L ACT #### [facility] [address] [place] [address] Adina Alarconen Payers Date Payer Category Payer Private Health Insurance [facility] [id number] 1970 Unknown [id number] 1970 Unknown [id number] 1970 Unknown [id number] 1957 Private Health Insurance [facility] [id number] Social History Date Type Detail Facility Unknown if ever smoked [facility] Other Sex Assigned At Sex Assigned At Bir th [facility] Other Evaluation note 05-02-2023 Note Date & [...] understanding and is agreeable to treatment plan [facility] Other History general Narrative - Reported Note Date & Type Note Facility History general Narrative - Reported Type Surgical History vasectomy Hospitalization History See Above [facility] Other Summary Purpose Family History No Family History Records FoundNo Family History Records Found Advance Directives No Advanced Directives Records FoundNo Advanced Directives Records Found Additional Source Comments (unrecognized sect ion and content) No Status Records FoundNo Status Records Found INFORMATION SOURCE (unrecogn ized section and content) DATE CREATED AUTHOR 05/14/2019 [facility] DATE CREATED AUTHOR AUTHOR'S ORGANSHANIA ATION 01/03/2024 [facility] REASON FOR VISIT (unrecogniz ed section and [...] BE BASED ON THE PRIMARY CLINICAL RECORDS. [facility]. provides no warranty or guarantee of the accuracy or completeness of information in this document.
[2024-01-29 08:48] LABS: Basophils Absolute Auto 0.1 10^3/uL (0.0-0.1); Basophils Percent Auto 1.2 % (0.2-2.0); Eosinophils Absolute Auto 0.2 10^3/uL (0.0-0.7); Hematocrit 44.7 % (42.0-54.0); Hemoglobin 14.6 g/dL (14.0-18.0); Immature Granulocytes Abs Auto 0.01 10^3/uL (0.00-0.03); Immature Granulocytes Pct Auto 0.2 % (0.0-0.5); Lymphocytes Absolute Auto 1.7 10^3/uL (1.2-3.8); Lymphocytes Percent Auto 25.8 % (20.5-60.0); Mean Corpuscular HGB Conc 32.7 g/dL (29.9-35.2); Mean Corpuscular Volume 88.9 fL (80.0-94.0); Monocytes Absolute Auto 0.6 10^3/uL (0.3-0.8); Monocytes Percent Auto 9.5 % (1.7-12.0); Neutrophils Percent Auto 60.3 % (43.0-75.0); Platelet Count 217 10^3/uL (150-450); Red Blood Count 5.03 10^6/uL (4.70-6.10); White Blood Count 6.6 10^3/uL (4.0-11.0)
[2024-01-29 08:49] LABS: Estimated Average Glucose 103 mg/dL; Glycohemoglobin A1C 5.2 % (4.5-6.2)
[2024-01-29 09:15] LABS: Anion Gap 11.3; Carbon Dioxide 28.3 mmol/L (21.0-32.0); Chloride 107 mmol/L (98-107); Glucose 91 mg/dL (74-106); Potassium 4.6 mmol/L (3.5-5.1); Sodium 142 mmol/L (136-145)
[2024-01-29 09:16] LABS: Alanine Aminotransferase 56 U/L (16-63); Aspartate Amino Transferase 30 U/L (15-37); Bilirubin Direct 0.1 mg/dL (0.0-0.2); Bilirubin Total 0.4 mg/dL (0.2-1.0); Calcium 8.4 mg/dL (8.5-10.1); Estimated GFR (African America >60 (>=60 mL/min/1.73m^2); Estimated GFR (Non-African Ame >60 (>=60 mL/min/1.73m^2)
[2024-01-29 09:17] LABS: Albumin Globulin Ratio 1.1; Albumin Level 3.6 g/dL (3.4-5.0); Alkaline Phosphatase 84 U/L (46-116); Chol HDL Ratio 2.8; Cholesterol 154 mg/dL (<=200); Globulin 3.2 g/dL; HDL Cholesterol 56 mg/dL (40-60); Total Protein 6.8 g/dL (6.4-8.2); Triglycerides 93 mg/dL (<=150); VLDL CHOLESTEROL 18.6 mg/dL
[2024-01-29 09:52] LABS: Prostate Specific Antigen Scrn 1.43 ng/mL (<=4.00)
== END 2024-01-29 08:12 | disposition home or self-care (01) ==
LOC: LAB 08:12
PROVIDERS: PCP Family Medicine; Visit Provider Family Medicine
DX: Z00.00 Encounter for general adult medical examination without abnormal findings (principal)
CPT/HCPCS: 36415; 80048; 80061; 80076; 83036; 85025; G0103

== ENCOUNTER 2025-02-15 15:47 | Outpatient (OUT) | payer OTHER, SELFPAY ==
--- OUTSIDE RECORDS SUMMARY | 2025-02-10 05:20 | XMS_ITS | Continuity of Care Document ---
Author Organization [facility] Address [address] [place] [id number] Phone Care Team Providers Care Aluminum Shingle Roofer Name Role Phone John Colon MD Primary Care Provider John Colon MD Attending Provider Care Teams Patient Care Team Team Status: Active Member Role/Relationship Status Dates John Colon MD Primary Care Provider Active Patient Care Team Team Status: Inactive Member Role/Relationship Status Dates John Colon MD Primary Care Provider Active S tart: February 10, 2025 End: February 10, 2025[facility] AARON Colonttending ProviderActiveStart: February 10, 2025 End: February 10, 2025 Chief Complaint and Reason for Visit Chief Complaint Admit Date annual wellness February 10, 2025 9:40am Reason for Visit Admit Date Annual physical exam February 10, 2025 9:40am Allergies, Adverse Reactions, Alerts Allergen Type Severity Reaction Last Updated Verified Status No Known Allergies Allergy Unknown February 09, 2025 2:07pmYesActive Social History Smoking Status Status Start Date End Date Date of Observa tion Never smoked tobacco (finding) February 10, 2025 10:03am Observation Status Observation Response Date of Response Legal Sex Male (finding) [facility] 1969 Problems Active Problems Problem Diagnosis/Recorded Date Onset Date Stat us Chronic left hip pain February 09, 2025 2:08pm Unkno wn Active Annual physical exam February 10, 2025 10:08am Unknamaris wn Active Medications No known medications Vital Signs Vital Reading Result Reference Range Collection Date/Time Height 74 [in_i] February 10, 2025 10:77zrGqpmul00.35 kgNovember 2024 10:01amBody Qpksrbbmpts14.8 [degF]97.6-99.0November 5 10:01amHeart Rate86 /min 60-100February 10, 2025 10:01amRespiratory rate18 /lwk79-36GkabirwfFebruary 10, 2025 10:01amOxygen saturation by Pulse ptxgevjy47 %95-100February 10, 2025 10:01am BP Wizzeyvv200 mm[Hg]100-140February 10, 2025 10:01amBP Lokihrzxr85 mm[Hg] 60-100February 10, 2025 10:01amBMI (Body Mass Index)25.2 kg/t5OiucqereFebruary 10, 2025 10:01am Advance Directives Advance Directive Response Recorded Date/ Time Advance Directives No January 9:38am Insurance Providers Guarantor Osmin Servin Address [address] [place] [id number] Info.Home Phone: Coverage Status Update:2025 Payer Group Member ID Coverage Type Subscriber Relationship to Subscriber Effective Date Expiration Date MMO Id: [id number] Liskai , M Id: [id number] [address] [place] [id number] Home Phone: [facility] [id number] [facility] [address] Work Phone: Id: [id number] Liskai , M Id: [id number] [address] [place] [phone] Home Phone: Self Encounters Encounter Location(s) Arrival/Admit Date Discharge/Departure Date Discharge/Departure Disposition Provider(s) Departed Physician/ Provider Office Visit -[facility] [place] February 10, 2025 9:40am February 10, 2025 10:19am Discharged to home care or self care (routine discharge) John Colon MD Recent Diagnosis Onset Date Admit Date Annual physical exam Unknown February 102024 9:40am Assessments Diagnosis Onset Date Resolution Status Admit Date Annual physical exam acuteFebruary 10, 2025 9:40am Plan of Treatment Future Tests Future scheduled test information is unavailable Pending Tests Test Name Ordered Date Scheduled Date Comprehensive Metabolic Panel February 10 10:15am Future Visits Future appointment information is unavailable Future Procedures Procedure Name Ordered Date Scheduled Date A1C with Estimated Average Glu February 10 10:15am Complete Blood Count Auto DiffNovember 2024 10:15amLipid PanelNovember 2024 10:15amPSA Screen (Yearly Only)February 10, 2025 10:15amThyroid Stimulating HormoneNovember 2024 10:15am Future Medications Future medication information is unavailable Patient Instructions Patient instructions are unavailable
--- OUTSIDE RECORDS SUMMARY | 2025-02-15 15:51 | XMS_ITS | Clinical Summary ---
Author Organization [facility] Address [address] [place] [address] Care Team Providers Care Director Of Extension Work Name Role Phone John Colon MD Primary Care Provider [phone] Allergies No known active allergies Medications No known medications Active Problems ProblemNoted DateDiagnosed DateAnnual physical exam01/29/2024 Assessment & Plan (01/29/2024 7:49 AM EST): Due for labs. Discussed proper diet and regular aerobic exercise. Need aerobic exercise 5-6 days a week for 30 minutes at a time. Smaller portions and limit total calories. Colonoscopy every 10 years. Tetanus every 10 years. Advised not to smoke. Discussed daily Aspirin therapy. Chronic left hip pain01/29/2024 Assessment & Plan (01/29/2024 7:50 AM EST): Pain off and on for years but not limiting activity. Discussed options and wants to monitor. If worsens can check x-ray and start PT. Use OTC PRN. Social History Tobacco UseTypesPacks/DayYears UsedDateSmoking Tobacco: NeverSmokeless Tobacco: Never Tobacco Cessation:Counseling Given: Not Answered Sex and Gender InformationValueDate RecordedSex Assigned at BirthNot on file Legal QtxLloe9606/06/2022 6:42 PM EDTGender IdentityNot on fileSexual Orientation Not on file Last Filed Vital Signs Vital SignReadingTime TakenCommentsBlood Yaveidxk012/6401/29/2024 7:20 AM EST Mtqsx852601/29/2024 7:20 AM BEAMgaqponxkqb00.2 ??C (97.1 ??F)01/29/2024 7:20 AM ESTRespiratory Liyt067503/30/2023 7:20 AM ESTOxygen Lnjhhkgexc37%01/29/2024 7:20 AM ESTInhaled Oxygen Concentration--Nrncvp54.1 kg (214 lb)01/29/2024 7:20 AM EST Ivmrsb419 cm (6' 2 )01/29/2024 7:20 AM ESTBody Mass Index27.4801/29/2024 7:20 AM EST Plan of Treatment Not on file Insurance Care Teams Team MemberRelationshipSpecialtyStart DateEnd Date John Colon MD PCP - GeneralFamily Cxssoicv55/6/24
--- OUTSIDE RECORDS SUMMARY | 2025-02-15 15:51 | XMS_ITS | Clinical Summary ---
Author Organization [facility] Address [id number] [address] [place] [address] Care Team Providers Care Supervisor Shop Name Role Phone Unavailable Primary Care Provider Unavailabl e Social History Tobacco UseTypesPacks/DayYears UsedDateSmoking Tobacco: Never AssessedChildcare AnswerDate LgkzrrtqAknhwkykdLyhaxea40/12/2019EmploymentAnswerDate Recorded IxxlitecvlOgsviyt24/12/2019Purpose - LifeAnswerDate RecordedPurpose and direction in lkisSnbidei46/11/2021ex and Gender InformationValueDate Recorded Sex Assigned at BirthNot on fileLegal CxlObhp1710/28/2014 11:39 AM EDTGender IdentityNot on fileSexual OrientationNot on file Plan of Treatment Health MaintenanceDue DateLast DoneCommentsDepression Sznmgtyzy59/21/1984Tobacco Xtrjvydox85/21/1984Adult BMI Djnjrijxk20/21/1990DTaP,Tdap and Td Vaccines (1 - Tdap)1991Zoster (Shingles) Vaccine (1 of 2)2022Influenza Vaccine 11/23/2024 Medical Devices Not on file Insurance [id number] [place] [phone]
--- OUTSIDE RECORDS SUMMARY | 2025-02-15 15:53 | XMS_ITS | CCD ---
Author Organization [facility] Care Team Providers Care Painter Supervisor Name Role Phone JOHN FERNANDEZ Primary Care Unavailable RAVI RIVERA V Consulting Unavailable JOHN FERNANDEZ Admitting Unavailable JOHN FERNANDEZ Attending Unavailable JOHN FERNANDEZ Consulting Unavailable TRACE CONCEPCION Consulting Unavailable JOHN FERNANDEZ Admitting Unavailable JOHN FERNANDEZ Attending Unavailable JOHN FERNANDEZ Primary Care Unavailable RAVI RIVERA V Consulting Unavailable JOHN FERNANDEZ Consulting Unavailable Azeb Gates Unavailable JOHN FERNANDEZ Attending Unavailable John Fernandez MD Primary Care Provider [phone] Ruth BERRIOS Attending Unavailable Alexei MERIDA Attending Unavailable Allergies Allergy ClassificationReported Allergen(s)Allergy TypeDate of OnsetReaction(s) Facility (1 source)paco; Translations: [nabumetone][facility] ([facility] source)No Known Medication Allergies; Translations: [No Known Medication Allergies]Propensity to adverse reactions (disorder)[facility] Repository Medications Current Medications MedicationDrug Class(es)DatesSig (Normalized)Sig (Original)azithromycin 250 mg oral tablet (1 source)Macrolide AntimicrobialStart: 38-99-9131Npxhvmiqjeek 250 MG 2 tablet on the first day, then 1 tablet daily for 4 days Orally Once a day for5 day(s) Apr, ActiveNirmatrelvir&Ritonavir 300/100 (Paxlovid, 300/100,) 20 x 150 MG & 10 x 100MG tablet therapypack (3 sources)Start: 03-05-2023 End: 36-80-1153Xlgmydrmxtjq&Ritonavir 300/100 (Paxlovid, 300/100,) 20 x 150 MG & 10 x 100MG tablet therapypack Indications: COVID-19 Take 1 Dose by mouth See administration instructions 1 each 03/05/2023 01/29/2024 DiscontinuedStart: 90-52-7696Gankgxpsnscx&Ritonavir 300/100 (Paxlovid, 300/100,) 20 x 150 MG & 10 x 100MG tablet therapypack Indications: COVID-19 Take 1 Dose by mouth See administration instructions 1 each 03/05/2023 ActivepredniSONE 20 mg oral tablet (1 source)Start: 85-57-7378lkjt 1 tablet by mouth every twelve hoursprednisone 20 MG 1 tablet Orally BID for 5 Apr, Active Completed/Discontinued Medications MedicationDrug Class(es)DatesSig (Normalized)Sig (Original)amoxicillin 875 mg oral tablet (1 source)Penicillin-class AntibacterialStart: 76-51-5928yjvf 1 tablet by mouth every twelve hoursAmoxicillin 875 MG 1 tablet Orally every 12 hrs for 7 days Oct, Not-Taking/PRNdextromethorphan hydrobromide 15 mg / guaiFENesin 400 mg / pseudoephedrine hydrochloride 60 mg oraltablet (1 source)alpha-Adrenergic Agonist, Uncompetitive N-pvufvw-O-aspartate Receptor Antagonist, Sigma-1 AgonistStart: 73-01-6661fpno 1 tablet by mouth every six hoursCapmist DM 60-15-400 MG 1 tablet as needed Orally every 6 hours Oct, Not-Taking/PRNfluticasone propionate 0.05 mg/actuat metered dose nasal spray (1 source)CorticosteroidStart: 20-26-5806wunn 1 spray(s) nasal route once daily as neededFluticasone Propionate 50 MCG/ACT 1 spray in each nostril Nasally Once a day for 21 days Oct, Not-Taking/PRNmethylPREDNISolone (1 source)CorticosteroidStart: 72-55-1259Wjte-Medrol 80 mg Jun, 80 mg Problems Active Problems Problem ClassificationProblemDateDocumented DateEpisodic/ChronicChronic obstructive pulmonary disease and bronchiectasis (1 source)Bronchitis, not specified as acute or chronicEpisodicOther lower respiratory disease (5 sources)Shortness of breath; Translations: [SHORTNESS OF BREATH]Onset: 32-49-4488ToknygxuRemzw non-traumatic joint disorders (5 sources)Hip pain; Translations: [Pain in left hip]Onset: 15-69-142544829595-05-0937 EpisodicOther screening for suspected conditions (not mental disorders or infectious disease) (1 source)Other specified abnormal findings of blood chemistry; Translations: [OTH SPEC ABNORMAL FINDINGS BLDCHEM]Onset: 29-06-2611Qncxurpr Past or Other Problems Problem ClassificationProblemDateDocumented DateEpisodic/ChronicFever of unknown origin (1 source)Fever, unspecified; Translations: [FEVER UNSPECIFIED]Onset: 12-03-2018 EpisodicOther liver diseases (1 source)Abnormal levels of other serum enzymes; Translations: [ABNORMAL LEVELS OTHER SERUM ENZYMES]Onset: 89-16-9262EsqogiybApnejgiwq (except that caused by tuberculosis or sexually transmitted disease) (4 sources)Pneumonia, unspecified organism; Translations: [PNEUMONIA UNSPECIFIED ORGANISM]Onset: 35-51-8684Rwxoxhka Results Test NameValueInterpretationReference RangeFacilityMLR HEMOGLOBIN A1Con 37-21-4567Xgosisk [Mass/Vol]103 mg/dLNOMercy Hospital St. LouisBnrsusxmmvZrA7e (Bld) [Mass fraction] 5.2 %4.5 - 6.2 %NOMS HealthcareComment on above:ADA RECOMMENDED LIMIT 4.0 - 6.0 ADA THERAPEUTIC TARGET < 7.0 ACTION SUGGESTED > 7.0 CLINISYNCNOMS HealthcareCARDIAC STRESS TESTon 68-50-4679AQMFRSS STRESS TEST CARDIAC STRESS TEST Requesting Physician: [...] rate of 74 beats per minute. The [place] interval is 0.16, the QRS is 0.08 [...] was injected with images and interpretation pending. [facility] Signed and Approved by: DR ADRI PRICE 04/24/2019 08:19:00[facility]-16-2019 NM STRESS/REST MULTIPatient: CIHNTAN HECK Exam Date: 04/16/2019 : 1970 Gender:M Ordering : DR JOHN FERNANDEZ . Admission #: [id number] Family : Order #: [id number] CLICK HERE TO VIEW EXAM RADIOLOGY REPORT [...] by: Ravi Rivera M.D. on 04/16/2019 at 14:49[facility] CBC W MANUAL DIFFon 67-00-9594NTWNGKPQ LYMPH #NormalThe [facility] HospitalComment on above:Performed By: #### BRADLEY #### [facility] [address] [place] [address] Adina KarenATYPICAL LYMPH %NormalThe [facility] HospitalComment on above: Performed By: #### BRADLEY #### [facility] [address] [place] [address] Adina KarenBAND #0.3 103/ulNormal0.0-0.3The [facility] HospitalComment on above: Performed By: #### BRADLEY #### [facility] [address] [place] [address] Adina KarenBAND %3 %Normal0-5The [facility] HospitalComment on above:Performed By: #### BRADLEY #### [facility] [address] [place] [address] Adina KarenBASOM #0.00 103/ulNormal0.00-0.10The [facility] HospitalComment on above:Performed By: #### BRADLEY #### [facility] [address] [place] [address] Adina KarenBASOM %0.0 %Critically low0.2-2.0The [facility] Hospitalment on above:Performed By: #### BRADLEY #### [facility] [address] [place] [address] Adina KarenBLAST #NormalThe [facility] HospitalComtrinity health [facility] on above:Performed By: #### BRADLEY #### [facility] [address] [place] [address] Adina KarenBLAST %NormalThe [facility] on above:Performed By: #### BRADLEY #### [facility] [address] [place] [address] Adina KarenCORRECTED WBCNormal4.0-11.0The [facility] on above: Performed By: #### BRADLEY #### [facility] [address] [place] [address] Adina KarenEosinophils (Bld) [#/Vol]0.00 103/ulNormal0.00-0.70The [facility] on above:Performed By: #### BRADLEY #### [facility] [address] [place] [address] Adina KarenEosinophils/100 WBC (Bld)0.0 %Critically low0.9-7.0The [facility] on above:Performed By: #### BRADLEY #### [facility] [address] [place] [address] Adina KarenErythrocyte distribution width (RBC) [Ratio]11.9 %Vojpbm64.0-15.0The [facility] on above:Performed By: #### BRADLEY #### [facility] [address] [place] [address] Aidna KarenHematocrit (Bld) [Volume fraction]39.3 %Critically low42.0-54.0The [facility] on above:Performed By: #### BRADLEY #### [facility] [address] [place] [address] Adina KarenHemoglobin (Bld) [Mass/Vol]13.0 g/dlCritically low14.0-18.0The [facility] on above:Performed By: #### BRADLEY #### [facility] [address] [address] Adina KarenLYMPHM #0.32 103/ulCritically low1.20-3.80The [facility] Comment on above:Performed By: #### BRADLEY #### [facility] [address] [address] Adina KarenLYMPHM%3.0 %Critically low20.5-60.0The [facility] HospitalComment on above:Performed By: #### BRADLEY #### [facility] [address] [place] [address] Adina KarenMCH (RBC) [Entitic mass]29.1 qoDdsuby98.9-34.0The [facility] Comment on above:Performed By: #### BRADLEY #### [facility] [address] [place] [address] Adina KarenMCHC (RBC) [Mass/Vol]33.1 g/eiYhopym69.9-35.2The [facility] Comment on above:Performed By: #### BRADLEY #### [facility] [address] [place] [address] Adina KarenMCV (RBC) [Entitic vol]87.9 nVSrhxsy89.0-94.0[facility] Comment on above:Performed By: #### BRADLEY #### [facility] [address] [place] [address] Adina KarenMETAMYELOCYTE #NormalThe [facility] HospitalComment on above:Performed By: #### BRADLEY #### [facility] [address] [place] [address] Adina KarenMETAMYELOCYTE %NormalThe [facility] HospitalComment on above:Performed By: #### BRADLEY #### [facility] [address] [place] [address] Adina KarenMONOM#0.10 103/ulCritically low0.30-0.80The [facility] HospitalComment on above:Performed By: #### BRADLEY #### [facility] [address] [place] [address] Adina KarenMONOM%1.0 %Critically low1.7-12.0The [facility] HospitalComment on above:Performed By: #### BRADLEY #### [facility] [address] [place] [address] Adina KarenMYELOCYTE #NormalThe [facility] HospitalComment on above:Performed By: #### BRADLEY #### [facility] [address] [place] [address] Adina KarenMYELOCYTE %NormalThe [facility] HospitalComment on above:Performed By: #### BRADLEY #### [facility] [address] [place] [address] Adina KarenNRBCNormalThe [facility] HospitalComment on above:Performed By: #### BRADLEY #### [facility] [address] [place] [address] Adina KarenPlatelet mean volume (Bld) [Entitic vol]10.7 fLNormal9.5-13.5The [facility] HospitalComment on above:Performed By: #### BRADLEY #### [facility] [address] [place] [address] Adina KarenPlatelets (Bld) [#/Vol]230 103/ppRdynce636-145Kfy [facility] Comment on above:Performed By: #### BRADLEY #### [facility] [address] [place] [address] Adina KarenRBC (Bld) [#/Vol]4.47 106/ulCritically low4.70-6.10The [facility] Hospitalment on above:Performed By: #### BRADLEY #### [facility] [address] [place] [address] Adina KarenSEG #9.77 103/ulCritically high1.40-6.50The [facility] Hospitalment on above:Performed By: #### BRADLEY #### [facility] [address] [place] [address] Adina KarenSegmented neutrophils/100 WBC (Bld)93.0 %Critically high43.0-75.0The [facility] HospitalComment on above:Performed By: #### CBCMAN #### [facility] [address] [place] [address] Adina KarenWBC (Bld) [#/Vol]10.5 103/ulNormal4.0-11.0[facility] Comment on above:Performed By: #### CBCMAN #### [facility] [address] [place] [address] Adina KarenPROF CHEM 8 (BAS METB)on 75-22-2047Arzbo gap [Moles/Vol]15.2 mmol/L NormalSumma Health Akron CampusComment on above:Performed By: #### BMP #### [facility] [address] [place] [address] Adina KarenCalcium [Mass/Vol]8.6 mg/dLNormal8.4-10.2[facility] Comment on above:Performed By: #### BMP #### [facility] [address] [place] [address] Adina KarenChloride [Moles/Vol]105 mmol/LVqexki26-510QqoSumma Health [facility] Campus Comment on above:Performed By: #### BMP #### [facility] [address] [place] [address] Adina KarenCO2 [Moles/Vol]26.0 mmol/QLldlrf70.0-30.0[facility] Comment on above:Performed By: #### BMP #### [facility] [address] [place] [address] Adina KarenCreatinine [Mass/Vol]0.77 mg/dLNormal0.66-1.25The [facility] Comment on above:Performed By: #### BMP #### [facility] [address] [place] [address] Adina KarenEGFR-AF QATARI>60Normal>=60[facility] CampusComment on above: Performed By: #### BMP #### [facility] [address] [place] [address] Adina KarenEGFR-NON AF QATARI>60Normal>=60The [facility] HospitalComment on above:Performed By: #### BMP #### [facility] [address] [id number] Adina KarenGlucose [Mass/Vol]141 mg/dLCritically epgp45-370Wwb [facility] HospitalComment on above:Performed By: #### BMP #### [facility] [address] [address] Adina KarenPotassium [Moles/Vol]4.2 mmol/LNormal3.4-5.0The [facility] Comment on above:Performed By: #### BMP #### [facility] [address] [address] Adina KarenSodium [Moles/Vol]142 mmol/PGqzokb146-867EwtSumma Health [facility] Comment on above:Performed By: #### BMP #### [facility] [address] [place] [address] Adina KarenUrea nitrogen [Mass/Vol]12.0 mg/dLNormal9.0-20.0The [facility] HospitalComment on above:Performed By: #### BMP #### [facility] [address] [place] [address] Adina KarenUrea nitrogen/Creatinine [Mass ratio]15.6 mg/mgNoUniversity Hospitals Conneaut Medical CenterComment on above:Performed By: #### BMP #### [facility] [address] [place] [address] Adina KarenCARDIAC SRIDHAR 3-6on 51-37-9683LN [Catalytic activity/Vol]232 U/L Critically yank43-194Ubp [facility] HospitalComment on above:Performed By: #### CMREP #### [facility] [address] [place] [address] Adina KarenCK.MB [Mass/Vol]0.59 ng/mLNormal<=2.37The [facility] HospitalComment on above:Performed By: #### CMREP #### [facility] [address] [place] [address] Adina KarenINR Coag (Bld) [Relative time]SEE BELOWParkview Health [facility] Hospital Comment on above:Result Comment: <0.034 ng/ml NEGATIVE 0.034-0.119 INDETERMINATE 0.120 AMI CUT OFFPerformed By: #### CMREP #### [facility] [address] [place] [address] Adina KarenTROP0.063 ng/mLCritically high<=0.034[facility] CampusComment on above:Performed By: #### CMREP #### [facility] [address] [place] [address] Adina KarenCK [Catalytic activity/Vol]238 U/LCritically rkkd88-791Ccs [facility] HospitalComment on above:Performed By: #### CMREP #### [facility] [address] [place] [address] Adina KarenCK.MB [Mass/Vol]0.57 ng/mLNormal<=2.37The [facility] HospitalComment on above:Performed By: #### CMREP #### [facility] [address] [place] [address] Adina KarenINR Coag (Bld) [Relative time]SEE BELOWNoalThe [facility] Comment on above:Result Comment: <0.034 ng/ml NEGATIVE 0.034-0.119 INDETERMINATE 0.120 AMI CUT OFFPerformed By: #### CMREP #### [facility] [address] [place] [address] Adina KarenTROP0.083 ng/mLCritically high<=0.034The [facility] HospitalComment on above:Performed By: #### CMREP #### [facility] [address] [place] [address] Adina KarenCBC AUTO DIFFon 37-99-9909Uritmfzcp (Bld) [#/Vol]0.0 103/ulNormal 0.0-0.1The [facility] HospitalComment on above:Performed By: #### CBC #### [facility] [address] [place] [address] Adina KarenBasophils/100 WBC (Bld)0.2 %Normal0.2-2.0[facility] Comment on above:Performed By: #### CBC #### [facility] [address] [address] Adina KarenEosinophils (Bld) [#/Vol]0.1 103/ulNormal0.0-0.7The [facility] on above:Performed By: #### CBC #### [facility] [address] [place] [address] Adina KarenEosinophils/100 WBC (Bld)0.7 %Critically low0.9-7.0The [facility] HospitalComment on above:Performed By: #### CBC #### [facility] [address] [place] [address] Adina KarenErythrocyte distribution width (RBC) [Ratio]11.9 %Mdnvzx61.0-15.0The [facility] HospitalComment on above:Performed By: #### CBC #### [facility] [address] [place] [address] Adina KarenHematocrit (Bld) [Volume fraction]35.9 %Critically low42.0-54.0The [facility] HospitalComment on above:Performed By: #### CBC #### [facility] [address] [place] [address] Adina KarenHemoglobin (Bld) [Mass/Vol]12.0 g/dLCritically low14.0-18.0The [facility] on above:Performed By: #### CBC #### [facility] [address] [place] [address] Adina KarenIG #0.05 10e3/ulCritically high0.00-0.03The [facility] HospitalComment on above:Performed By: #### CBC #### [facility] [address] [place] [address] Adina KarenIG %0.6 %Critically high0.0-0.5The [facility] HospitalComtrinity health [facility] on above:Performed By: #### CBC #### [facility] [address] [place] [address] Adina KarenLymphocytes (Bld) [#/Vol]0.8 103/ulCritically low1.2-3.8ThWilson HealthComment on above:Performed By: #### CBC #### [facility] [address] [place] [address] Adina KarenLymphocytes/100 WBC (Bld)9.9 %Critically low20.5-60.0[facility] CampusComment on above:Performed By: #### CBC #### [facility] [address] [place] [address] Adina KarenMANUAL DIFF REQNONormalThe [facility] HospitalComment on above: Performed By: #### CBC #### [facility] [address] [place] [address] Adina KarenMCH (RBC) [Entitic mass]29.3 bxQdvagv17.9-34.0[facility] Comment on above:Performed By: #### CBC #### [facility] [address] [place] [address] Adina KarenMCHC (RBC) [Mass/Vol]33.4 g/vTVzedvj59.9-35.2[facility] Comment on above:Performed By: #### CBC #### [facility] [address] [place] [address] Adina KarenMCV (RBC) [Entitic vol]87.8 jOAydrev32.0-94.0[facility] Comment on above:Performed By: #### CBC #### [facility] [address] [place] [address] Adina KarenMonocytes (Bld) [#/Vol]0.7 103/ulNormal0.3-0.8ThWilson Health Comment on above:Performed By: #### CBC #### [facility] [address] [place] [address] Adina KarenMonocytes/100 WBC (Bld)9.1 %Normal1.7-12.0[facility] Comment on above:Performed By: #### CBC #### [facility] [address] [place] [address] Adina KarenNeutrophils (Bld) [#/Vol]6.5 103/ulNormal1.4-6.5The [facility] HospitalComment on above:Performed By: #### CBC #### [facility] [address] [place] [address] Adina KarenNeutrophils/100 WBC (Bld)79.5 %Critically high43.0-75.0The [facility] HospitalComment on above:Performed By: #### CBC #### [facility] [address] [place] [address] Adina KarenPlatelet mean volume (Bld) [Entitic vol]9.7 fLNormal9.5-13.5The [facility] HospitalComment on above:Performed By: #### CBC #### [facility] [address] [place] [address] Adina KarenPlatelets (Bld) [#/Vol]198 103/uyMnaepi595-414Xbg [facility] Comment on above:Performed By: #### CBC #### [facility] [address] [place] [address] Adina KarenRBC (Bld) [#/Vol]4.09 106/ulCritically low4.70-6.10The [facility] HospitalComment on above:Performed By: #### CBC #### [facility] [address] [place] [address] Adina KarenWBC (Bld) [#/Vol]8.2 103/ulNormal4.0-11.0The [facility] Comment on above:Performed By: #### CBC #### [facility] [address] [place] [address] Adina KarenLACTATE/LACTIC ACIDon 71-83-3495Ergrssb [Moles/Vol]1.1 mmol/LNormal 0.7-2.1The [facility] HospitalComment on above:Performed By: #### LACT #### [facility] [address] [place] [address] Adina KarenLIPASEon 10-60-4973Zbcipg [Catalytic activity/Vol]108.0 U/LNormal 23.0-300.0The [facility] HospitalComment on above:Performed By: #### CMP, LIPA, TROP #### [facility] [address] [address] Adina KarenPROF 14(COMP METB)on 41-49-2651Azlsrba [Mass/Vol]2.7 g/dLCritically low3.5-5.0[facility] CampusComment on above:Performed By: #### CMP, LIPA, TROP #### [facility] [address] [address] Adina KarenAlbumin/Globulin [Mass ratio]0.8 {ratio}NormalSumma Health [facility] Campus Comment on above:Performed By: #### CMP, LIPA, TROP #### [facility] [address] [address] Adina KarenALP [Catalytic activity/Vol]51 U/IQzmedw75-841AlfSumma Health [facility] Campus Comment on above:Performed By: #### CMP, LIPA, TROP #### [facility] [address] [address] Adina KarenALT [Catalytic activity/Vol]25 U/ULvckmd22-88Fgi [facility] Comment on above:Performed By: #### CMP, LIPA, TROP #### [facility] [address] [address] Adina KarenAnion gap [Moles/Vol]13.2 mmol/LNormalSumma Health Akron CampusComment on above:Performed By: #### CMP, LIPA, TROP #### [facility] [address] [place] [address] Adina KarenAST [Catalytic activity/Vol]21 U/VOxrgaq94-74Yti [facility] Comment on above:Performed By: #### CMP, LIPA, TROP #### [facility] [address] [place] [address] Adina KarenBilirubin Ql (U)0.3 mg/dLNormal0.2-1.3The [facility] HospitalComment on above:Performed By: #### CMP, LIPA, TROP #### [facility] [address] [place] [address] Adina KarenCalcium [Mass/Vol]8.1 mg/dLCritically low8.4-10.2[facility] CampusComment on above:Performed By: #### CMP, LIPA, TROP #### [facility] [address] [place] [address] Adina KarenChloride [Moles/Vol]104 mmol/SOafvvc83-925YzySumma Health [facility] Campus Comment on above:Performed By: #### CMP, LIPA, TROP #### [facility] [address] [place] [address] Adina KarenCO2 [Moles/Vol]28.3 mmol/OBreiqb57.0-30.0The [facility] Comment on above:Performed By: #### CMP, LIPA, TROP #### [facility] [address] [place] [address] Adina KarenCreatinine [Mass/Vol]0.95 mg/dLNormal0.66-1.25The [facility] Comment on above:Performed By: #### CMP, LIPA, TROP #### [facility] [address] [place] [address] Adina KarenEGFR-AF QATARI>60Normal>=60The [facility] HospitalComment on above: Performed By: #### CMP, LIPA, TROP #### [facility] [address] [place] [address] Adina KarenEGFR-NON AF QATARI>60Normal>=60The [facility] HospitalComment on above:Performed By: #### CMP, LIPA, TROP #### [facility] [address] [place] [address] Adina KarenGlobulin (S) [Mass/Vol]3.5 g/dLNormalThe [facility] HospitalComment on above:Performed By: #### CMP, LIPA, TROP #### [facility] [address] [place] [address] Adina KarenGlucose [Mass/Vol]101 mg/sJPesjuk99-608Sco [facility] HospitalComment on above:Performed By: #### CMP, LIPA, TROP #### [facility] [address] [address] Adina KarenPotassium [Moles/Vol]3.5 mmol/LNormal3.4-5.0[facility] Comment on above:Performed By: #### CMP, LIPA, TROP #### [facility] [address] [place] [address] Adina KarenProtein [Mass/Vol]6.2 g/dLNormal6.1-8.2[facility] CampusComment on above:Performed By: #### CMP, LIPA, TROP #### [facility] [address] [place] [address] Adina KarenSodium [Moles/Vol]142 mmol/TWmpcqn939-534IpdSumma Health [facility] Campus Comment on above:Performed By: #### CMP, LIPA, TROP #### [facility] [address] [place] [address] Adina KarenUrea nitrogen [Mass/Vol]11.0 mg/dLNormal9.0-20.0The [facility] HospitalComment on above:Performed By: #### CMP, LIPA, TROP #### [facility] [address] [place] [address] Adina KarenUrea nitrogen/Creatinine [Mass ratio]11.6 mg/mgNoUniversity Hospitals Conneaut Medical CenterComment on above:Performed By: #### CMP, LIPA, TROP #### [facility] [address] [place] [address] Adina KarenTROPONIN - Ion 13-43-1090Ouzmfken I.cardiac [Mass/Vol]0.075 ng/mL Critically high<=0.034[facility] CampusComment on above:Result Comment: TEST REPEATED CRITICAL VALUE VERIFIEDPerformed By: #### CMP, LIPA, TROP #### [facility] [address] [place] [address] Adina KarenTroponin I.cardiac [Mass/Vol]SEE BELOWParkview Health Bryan Hospital Comment on above:Result Comment: <0.034 ng/ml NEGATIVE 0.034-0.119 INDETERMINATE 0.120 AMI CUT OFFPerformed By: #### CMP, LIPA, TROP #### [facility] [address] [id number] Adina RutherfordXR CHEST 2 Von [id number] CHEST 2 VPatient: CHINTAN HECKKaelyn Exam Date: 11/25/2018 : 1970 Gender:M Ordering : DR TRACE CONCEPCION Admission #: [id number] Family : DR JOHN FERNANDEZ . Order #: [id number] CLICK HERE TO VIEW EXAM RADIOLOGY REPORT [...] by: Ravi Rivera M.D. on 11/25/2018 at 10:18[facility] Vital Signs Date TimeVital SignValuePerforming CqekzkbrhOwojnmtw38-49-4616 07:20-0500Body cmJhon Fernandez MD Work Phone: [facility] CenterUjeocvuajt47-86-4400 07:20-0500Body mass index (BMI) [Ratio]27.48 kg/m2John Fernandez MD Work Phone: [facility] CenterNukjbzmehh64-38-0497 07:20-0500Body temperature 97.11 [degF]John Fernandez MD Work Phone: noMer[facility] LouisDojyekdlbi67-10-2787 07:20-0500Body mlryhw92.07 kgJohn Fernandez MD Work Phone: noMer[facility] LouisDiefzhpdts04-12-6207 07:20-0500Diastolic blood mm[Hg]John Fernandez MD Work Phone: noMer[facility]. LouisZhfnzsjeee54-37-7957 07:20-0500Heart rate65 /min John Fernandez MD Work Phone: [facility] Wxbgsjxuup36-71-9124 07:20-0500Respiratory rate18 /minJohn Fernandez MD Work Phone: [facility] Ltgfgmiqsg93-32-9202 07:20-2537RfN9% (BldA) [Mass fraction]96 %John Fernandez MD Work Phone: noMer[facility] LouisOuxhozazgd79-92-8045 07:20-0500Systolic blood xylhxzmw881 mm[Hg]John Fernandez MD Work Phone: noMer[facility] LouisMlyaghpmja91-60-5064 14:10-0500Body esyvld237.96 cmAabe Gates Other [facility] Other 02-08-2024 14:10-0500Body mass index (BMI) [Ratio] 26.21 kg/r4EgfveAzeb Gates Other [facility] Other 02-08-2024 14:10-0500Body kjhlslybncq16.7 [degF]Azeb Gates [facility] Other 02-08-2024 14:10-0500Body axtscs74.63 kgAzeb Gates Other [facility] Other 02-08-2024 14:10-0500Respiratory rate18 /minAzeb Gates Other [facility] Other 02-08-2024 14:10-8404NoX5% (BldA) [Mass fraction]97 % Azeb Gates [facility] Other Encounters Encounter DateEncounter TypeCare ProviderFacilityStart: 11-13-2024 End: 90-16-5541vepootbfwrPmmbolo HARWOODFacility:[facility] WellnessStart: 01-29-2024 End: 47-72-2217Huofiz flowsLili Fernandez MD Work Phone: [facility] CWM FMStart: 01-29-2024 End: 47-28-7058Gecfgq flowsheetJohn Fernandez MD Work Phone: [facility] C[facility] FMStart: 01-29-2024 End: 24-74-1281Zgfptynrh Result EncounterJohn Fernandez MD Work Phone: [facility] External Department UnsolicitedStart: 01-29-2024 End: 84-85-6487Xuprvdx encounter procedureJohn Fernandez MD Work Phone: [facility] Work Phone: Start: 01-29-2024 End: 65-64-2926Kykrzshe preventive med est patient 40-64yrsMarc Darlene SEBASTIAN Work Phone: [facility] CWM FMComment on above:Annual physical exam (Primary Dx); Chronic left hip painStart: 01-29-2024 End: 21-80-4320wnbrqryhboXNXH NADERERNot AvailableStart: 01-01-2024 End: 19-93-0216pokzagxboqUrii T AMESFacility:[facility] Start: 05-02-2023 End: 36-40-0224awusijjkzgQkaqj Keller Other [facility] Other Start: 62-55-4550Ugjfgx outpatient new 30 minutesAmbronan GatesFPG Urgent Care ClydeStart: 04-16-2019 End: 34-98-7466Rwdfzwa encounter procedureMARC A NADERERFacility:F6Mgisy: 11-25-2018 End: 55-01-4874Cyxcuue encounter procedureMARC A NADERERFacility:H1 Procedures DateProcedureProcedure DetailPerforming ClinicianStart: 03-70-1426TNC HEMOGLOBIN S6KMludJohn Fernandez MD Work Phone: Start: 15-75-9178XgkxnnwbfhmIlur Darlene SEBASTIAN Work Phone: Start: 38-67-9863Ypovwgxkfwr examination of blood, cultureMARC NADLATISHARComment on above:Performed By: #### LACT #### [facility] [address] [address] Adina Rutherford Plan of Treatment DateCare ActivityDetailAuthorStart: 70-99-5285Sjauwxcwy for malignant neoplasm of colonNOMS HealthcareStart: 01-29-2024 End: 18-59-2449Gipml metabolic 1998 panel - Serum or PlasmaBasic metabolic panel Lab Routine Annual physical exam Expected: 01/29/2024 (Approximate), Expires: 01/28/2025NOMN HealthcareComment on above:Expected: 01/29/2024 (Approximate), Expires: 01/28/2025Start: 01-29-2024 End: 08-67-9575XZB W Auto Differential panel - BloodCBC and differential Lab Routine Annual physical exam Expected: 01/29/2024 (Approximate), Expires: 1 03/30/2024NOMN HealthcareComment on above:Expected: 01/29/2024 (Approximate), Expires: 01/28/2025Start: 01-29-2024 End: 50-14-8678Toevvwblrq A1c/Hemoglobin.total in BloodHemoglobin A1c Lab Routine Annual physical exam Expected: 01/29/2024 (Approximate), Expires: 01/28/2025[facility] Healthcare Work Phone: Comment on above:Expected: 01/29/2024 (Approximate), Expires: 01/28/2025Start: 01-29-2024 End: 85-58-1200Hsskznd function 2000 panel - Serum or PlasmaHepatic function panel Lab Routine Annual physical exam Expected: 01/29/2024 (Approximate), Expires: 01/28/2025N[facility] HealthcareComment on above:Expected: 01/29/2024 (Approximate), Expires: 01/28/2025Start: 01-29-2024 End: 98-98-0631Plxlt 1996 panel - Serum or PlasmaLipid panel Lab Routine Annual physical exam Expected: 01/29/2024 (Approximate), Expires: 01/28/2025N[facility] HealthcareComment on above:Expected: 01/29/2024 (Approximate), Expires: 01/28/2025Start: 01-29-2024 End: 95-80-8212Dqgjopec specific Ag [Mass/volume] in Serum or PlasmaPSA Lab Routine Annual physical exam Expected: 01/29/2024 (Approximate), Expires: 01/28/2025NOMN HealthcareComment on above:Expected: 01/29/2024 (Approximate), Expires: 01/28/2025Start: 01-29-2024 End: 90-08-5464Mmxtyjx encounter bwejibmdf31/06/2024 7:15 AM EST Office Visit [facility] [address] [place] [address] John Fernandez MD [address] [place] [phone] [facility] FMComment on above:ArrivedStart: 86-86-4126Jrjbwddsy vaccinationInfluenza Vaccine (#1)[facility] HealthcareStart: 73-79-9703Hpgiijoll for malignant neoplasm of colonST. [facility]OR[facility] Healthcare Payers DatePayer CategoryPayerPolicy [id number] Health InsuranceCIGNA [id number] Health [id number] Health [id number] Social History DateTypeDetailFacilityUnknown if ever smokedNocooper [facility] memorial hospital [facility] Other Start: 68-68-2239Sgd Assigned At BirthNocooper [facility] hospital [facility] Other Tobacco smoking status NHISTobacco smoking consumption unknownNOMS HealthcareStart: 13-47-8197Vzg assigned at birthNot on fileNOMN HealthcareStart: 04-75-0523Ttlcxny smoking status NHISNever smoked tobaccoNOMN HealthcareStart: 10-95-4534Zchzmgb use and exposureSmokeless tobacco non-user [facility] HealthcareStart: 84-49-4303Mfdfvkj of Social functionNOMN Healthcare History of Present illness Narrative 01-29-2024 Note Date & JciuImcvGgcdvesa39-03-9342 History of Present illness Narrative* John Fernandez MD - 01/29/2024 7:50 AM ESTAssociated Problem(s): Chronic left hip pain Pain off and on for years but not limiting activity. Discussed options and wants to monitor. If worsens can check x-ray and start PT. Use OTC PRN. * John Fernandez MD - 01/29/2024 7:49 AM ESTAssociated Problem(s): Annual physical exam Due for labs. Discussed proper diet and regular aerobic exercise. Need aerobic exercise 5-6 days a week for 30 minutes at a time. Smaller portions and limit total calories. Colonoscopy every 10 years. Tetanus every 10 years. Advised not to smoke. Discussed daily Aspirin therapy. * John Fernandez MD - 01/29/2024 7:15 AM EST Images from the original note were not included. Subjective Patient ID: Chintan Heck is a 53 y.o. male who presents for Annual Exam (Wellness ) and Hip Pain. Presents for annual PE. Patient feels well today. Weight up 4 pounds in the past year. Active at work and farms. No regular exercise. Tries to watch diet and eat healthy. Increased fruits and vegetables. Smaller portions and limits snacking. Tries to limit total daily calories. Due for labs. Colonoscopy normal earlier in year. C/o left hip pain off and on for several years. Pain worse with increased activity. 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 Not limitingactivity. Pain to sit prolonged. Pain in anterior hip and occasionally on side. No pain in groin. Using OTC PRN and helps. Review of Systems Constitutional: Negative for fatigue. Respiratory: Negative for cough, shortness of breath and wheezing. Cardiovascular: Negative for chest pain and palpitations. Gastrointestinal: Negative for abdominal pain, diarrhea, nausea and vomiting. Genitourinary: Negative for dysuria. Objective Physical Exam Constitutional: General: He is not in acute distress. Appearance: Normal appearance. HENT: Head: Normocephalic. Right Ear: Tympanic membrane and ear canal normal. Left Ear: Tympanic membrane and ear canal normal. Eyes: Extraocular Movements: Extraocular movements intact. Pupils: Pupils are equal, round, and reactive to light. Cardiovascular: Rate and Rhythm: Normal rate and regular rhythm. Heart sounds: No murmur heard. No friction rub. No gallop. Pulmonary: Breath sounds: Normal breath sounds. No wheezing, rhonchi or rales. Abdominal: General: Bowel sounds are normal. There is no distension. Palpations: Abdomen is soft. Tenderness: There is no abdominal tenderness. There is no guarding or rebound. Musculoskeletal: General: Normal range of motion. Left lower leg: No edema. Neurological: General: No focal deficit present. Mental Status: He is alert. Cranial Nerves: No cranial nerve deficit. Deep Tendon Reflexes: Reflexes normal. Assessment/Plan Problem List Items Addressed This Visit Annual physical exam - Primary Due for labs. Discussed proper diet and regular aerobic exercise. Need aerobic exercise 5-6 days a week for 30 minutes at a time. Smaller portions and limit total calories. Colonoscopy every 10 years. Tetanus every 10 years. Advised not to smoke. Discussed daily Aspirin therapy. Relevant Orders Hemoglobin A1c Basic metabolic panel CBC and differential Hepatic function panel Lipid panel PSA documented in this encounterNOMN Healthcare Evaluation note 05-02-2023 Note Date & NrsoWzkcUeyfxmif26-37-5885 Evaluation note* Encounter Date Diagnosis Assessment Notes Treatment Notes Treatment Clinical Notes Apr, Bronchitis (ICD-10 - J40) Discussed [...] rest, may use Tylenol as needed for fever/discomfort, cool mist humidifier. Patient to follow up with PCP in 2-3 days. Immediate eval if SOB, difficulty breathing, chest pain, dizziness, or other concerning symptoms. Patient verbalizes understanding and is agreeable to treatment plan [facility] Other Evaluation note Note Date & TypeNoteFacilityEvaluation note* Diagnosis Annual physical exam- Primary Routine general medical examination at a health care facility Chronic left hip pain documented in this encounter [facility] History general Narrative - Reported Note Date & TypeNoteFacilityHistory general Narrative - Reported* Type Description Date Surgical History vasectomy Hospitalization HistorySee Above [facility] Other Summary Purpose Family History No Family History Records FoundNo Family History Records FoundNo Family History Records Found Advance Directives No Advanced Directives Records FoundNo Advanced Directives Records FoundNo Advanced Directives Records Found Additional Source Comments (unrecognized sect ion and content) No Status Records FoundNo Status Records FoundNo Status Records Found INFORMATION SOURCE (unrecogn ized section and content) DATE CREATED AUTHOR 05/14/2019 [facility] DATE CREATED AUTHOR AUTHOR'S ORGANIZ ATION 01/30/2024 [facility] DATE CREATED AUTHOR AUTHOR'S ORGANIZ ATION 11/15/2024 [facility] REASON FOR VISIT (unrecogniz ed section and content) ReasonCommentsAnnual ExamWellnessHip Pain Care Teams (unrecognized sec tion and content) Team MemberRelationshipSpecialtyStart DateEnd Date John Fernandez MD [address] [place] [phone] PCP - [facility]01/29/24Team MemberRelationshipSpecialtyStart DateEnd Date John Fernandez MD [address] [place] [address] PCP - [facility]01/29/24Team MemberRelationshipSpecialtyStart DateEnd Date John Fernandez MD [address] [place] [phone] PCP - [facility]01/29/24 FOR RECORDS PERTAINING TO PATIENTS WHO ARE [...] BE BASED ON THE PRIMARY CLINICAL RECORDS. [facility] [employer] [facility]. provides no warranty or guarantee of the accuracy or completeness of information in this document.
[2025-02-15 16:13] LABS: Hematocrit 42.5 % (42.0-54.0); Hemoglobin 14.3 g/dL (14.0-18.0); Immature Granulocytes Abs Auto 0.02 10^3/uL (0.00-0.03); Immature Granulocytes Pct Auto 0.3 % (0.0-0.5); Lymphocytes Absolute Auto 1.8 10^3/uL (1.2-3.8); Mean Corpuscular HGB Conc 33.6 g/dL (29.9-35.2); Mean Corpuscular Hemoglobin 30.0 pg (25.9-34.0); Mean Corpuscular Volume 89.3 fL (80.0-94.0); Platelet Count 219 10^3/uL (150-450); Red Blood Count 4.76 10^6/uL (4.70-6.10); White Blood Count 7.1 10^3/uL (4.0-11.0)
[2025-02-15 16:42] LABS: Alanine Aminotransferase 36 U/L (16-63); Albumin Globulin Ratio 1.3; Albumin Level 3.8 g/dL (3.4-5.0); Alkaline Phosphatase 85 U/L (46-116); Anion Gap 8.5; Aspartate Amino Transferase 23 U/L (15-37); Blood Urea Nitrogen 13.0 mg/dL (7.0-18.0); Calcium 8.6 mg/dL (8.5-10.1); Carbon Dioxide 34.1 mmol/L (21.0-32.0); Chloride 104 mmol/L (98-107); Cholesterol 153 mg/dL (<=200); Estimated GFR (African America >60 (>=60 mL/min/1.73m^2); Estimated GFR (Non-African Ame 57 (>=60 mL/min/1.73m^2); Globulin 2.9 g/dL; Glucose 85 mg/dL (74-106); HDL Cholesterol 57 mg/dL (40-60); Potassium 3.6 mmol/L (3.5-5.1); Sodium 143 mmol/L (136-145); Thyroid Stimulating Hormone 1.307 uIU/mL (0.358-3.740); Total Protein 6.7 g/dL (6.4-8.2); Triglycerides 142 mg/dL (<=150); VLDL CHOLESTEROL 28.4 mg/dL
== END 2025-02-15 15:48 | disposition home or self-care (01) ==
PROVIDERS: PCP Family Medicine; Visit Provider Family Medicine
DX: Z00.00 Encounter for general adult medical examination without abnormal findings (principal); Z12.5 Encounter for screening for malignant neoplasm of prostate
CPT/HCPCS: 36415; 80053; 80061; 83036; 84443; 85025; G0103